=== PATIENT | male | born 1940 | race African-American/Black ===

== ENCOUNTER 2017-01-20 17:41 | Emergency (ER) | payer MEDICARE ==
[2017-01-20] MEDS ORDERED: MECLIZINE HCL 12.5 MG TABLET PO ONE ×2 (18:57→22:20)
--- NOTE | 2017-01-20 19:01 | ER Document Report ---
ED General - General Chief Complaint: Dizziness Stated Complaint: DIZZINESS Time seen by provider: 18:40 Mode of Arrival: Stretcher Information source: Patient TRAVEL OUTSIDE OF THE [place] IN LAST 30 DAYS: No - HPI Notes: Patient is a 76-year-old male presents [facility] with report of intermittent episodes of dizziness that he has had for several years, worse over the course of the past week with episode of near syncope today in which she felt diaphoretic and generally weak. Patient denies numbness, chest pain, palpitations, weight loss. He did not get overheated outside but didn't get diaphoretic. The patient reports no neck pain, back pain or headache. He denies any fever, cough, congestion or dysuria. No recent medication changes. Patient describes a sensation where he feels lightheaded with standing but also a sensation where the room seems to spin at times. - Related Data Allergies/Adverse Reactions: No Known Allergies Allergy (Verified 06/21/15 15:36) Past Medical History - Social History Smoking Status: Never Smoker Cigarette use (# per day): No Frequency of alcohol use: None Drug Abuse: None Lives with: Family Family History: Reviewed & Not Pertinent - Past Medical History Cardiac Medical History: Reports: Hx Hypercholesterolemia, Hx Hypertension - meds x 7 years Denies: Hx Atrial Fibrillation, Hx Congestive Heart Failure, Hx Coronary Artery Disease, Hx Heart Attack, Hx Peripheral Vascular Disease, Hx Pulmonary Embolism, Hx Heart Murmur Pulmonary Medical History: Reports: Hx Sleep Apnea Denies: Hx Asthma, Hx Bronchitis, Hx COPD, Hx Pneumonia, Hx Respiratory Failure, Hx Tuberculosis Neurological Medical History: Denies: Hx Cerebrovascular Accident, Hx Seizures Renal/ Medical History: Reports: Hx Benign Prostatic Hyperplasia - nocturia x 3-4/night. Denies: Hx End Stage Renal Disease, Hx Kidney Stones, Hx Peritoneal Dialysis Malignancy Medical History: Denies Hx Lung Cancer Musculoskeltal Medical History: Reports Hx Arthritis, Denies Hx Fibromyalgia, Denies Hx Muscular Dystrophy Psychiatric Medical History: Reports: Hx Anxiety Traumatic Medical History: Denies: Hx Fractures Past Surgical History: Reports: Hx Appendectomy, Hx Pacemaker, Hx Tonsillectomy - as child. Denies: Hx Bowel Surgery, Hx Cholecystectomy, Hx Coronary Artery Bypass Graft, Hx Gastric Bypass Surgery, Hx Herniorrhaphy - Immunizations Immunizations up to date: Yes Hx Diphtheria, Pertussis, Tetanus Vaccination: Yes Hx Pneumococcal Vaccination: 09/27/10 Review of Systems - Review of Systems Notes: REVIEW OF SYSTEMS: CONSTITUTIONAL : Denies fever, chills. Denies recent illness. EENT: Denies eye, ear, throat, or mouth pain or symptoms. Denies nasal or sinus congestion or discharge. Denies throat, tongue, or mouth swelling or difficulty swallowing. CARDIOVASCULAR: Denies chest pain. Denies palpitations or racing or irregular heart beat. Denies ankle edema. RESPIRATORY: Denies cough, cold, or chest congestion. Denies shortness of breath, difficulty breathing, or wheezing. GASTROINTESTINAL: Denies abdominal pain or distention. Denies nausea, vomiting , or diarrhea. Denies blood in vomitus, stools, or per rectum. Denies black, tarry stools. Denies constipation. GENITOURINARY: Denies difficulty urinating, painful urination, burning, frequency, blood in urine, or discharge. MUSCULOSKELETAL: Denies back or neck pain or stiffness. Denies joint pain or swelling. SKIN: Denies rash, lesions or sores. HEMATOLOGIC : Denies easy bruising or bleeding. LYMPHATIC: Denies swollen, enlarged glands. NEUROLOGICAL: Denies confusion. Denies passing out or loss of consciousness. Denies headache. Denies weakness or paralysis or loss of use of either side. Denies problems with gait or speech. Denies sensory loss, numbness, or tingling. Denies seizures. Patient does report a mild chronic tremor which is unchanged. PSYCHIATRIC: Denies anxiety or stress. Denies depression, suicidal ideation, or homicidal ideation. ALL OTHER SYSTEMS REVIEWED AND NEGATIVE. Dictation was performed using [employer] voice recognition software Physical Exam - Vital signs Vitals: Pulse Resp BP Pulse Ox 80 18 157/76 H 100 01/20/17 18:40 01/20/17 18:40 01/20/17 18:40 01/20/17 18:40 - Notes Notes: PHYSICAL EXAMINATION: GENERAL: Well-appearing, well-nourished and in no acute distress. HEAD: Atraumatic, normocephalic. EYES: Pupils equal round and reactive to light, extraocular movements intact, sclera anicteric, conjunctiva are normal. ENT: Nares patent, oropharynx clear without exudates. Moist mucous membranes. Tympanic membranes clear bilaterally. NECK: Normal range of motion, supple without lymphadenopathy. No carotid bruits. LUNGS: Breath sounds clear to auscultation bilaterally and equal. No wheezes rales or rhonchi. HEART: Regular rate and rhythm without murmurs. No gallop or rub. ABDOMEN: Soft, nontender, nondistended abdomen. No guarding, no rebound. No masses appreciated. Musculoskeletal: Normal range of motion. No cyanosis. 1+ bilateral lower extremity edema. Negative Homans. No palpable cord. Previous right knee replacement from 1 year ago in surgical sites appear appropriate. NEUROLOGICAL: Cranial nerves grossly intact. Normal speech. Normal sensory, motor exams. Patient does have a mild intention tremor which is equal bilaterally patient states is unchanged. PSYCH: Normal mood, normal affect. SKIN: Warm, Dry, normal turgor, no rashes or lesions noted. Course - Re-evaluation Re-evalutation: 01/20/17 22:20 Patient watched on caramel candy maker helper had no bradycardia or ectopy or other abnormality. Patient given meclizine with resolution of symptoms. Orthostatics were normal. Patient was ambulatory without complaint. No evidence for central vertigo, acute CVA, electrolyte imbalance, anemia, hypoglycemia, TIA, significant orthostasis, electrolyte imbalance. Findings fit more so other peripheral vertigo, and patient has history of the same. - Vital Signs Vital signs: Temp Pulse Resp BP Pulse Ox 80 15 136/75 H 99 01/20/17 18:40 01/20/17 22:00 01/20/17 22:00 01/20/17 22:00 - Laboratory Result Diagrams: 01/20/17 20:05 01/20/17 20:05 Laboratory results interpreted by me: 01/20/17 01/20/17 18:45 20:05 RDW 14.8 H Monocytes % 14.6 H Eosinophils % 6.1 H Urine Blood SMALL H - EKG Interpretation by Ri EKG shows normal: Sinus rhythm When compared to previous EKG there are: No significant change Additional EKG results interpreted by me: 01/20/17 19:05 EKG as interpreted by wa showed normal sinus rhythm at 66. There is no gross evidence for acute SD or ischemia noted. There is no change from previous EKG reviewed from 09/05/15. Discharge - Discharge Clinical Impression: Vertigo Condition: Stable Disposition: HOME, SELF-CARE Instructions: Meclizine ([facility]), Vertigo ([facility]) Additional Instructions: Stand up slowly. Use your cane to ambulate. Prescriptions: Meclizine HCl 25 mg PO Q8HP PRN #20 tablet PRN Reason: Referrals: FELICITY VALDOVINOS MD [Primary Care Provider] - Follow up as needed
[2017-01-20 19:30] LABS: APPEARANCE,URINE CLEAR; BILIRUBIN,URINE NEGATIVE (NEGATIVE); GLUCOSE, URINE NEGATIVE (NEGATIVE); KETONES,URINE NEGATIVE (NEGATIVE); LEUKOCYTE ESTERASE,URINE NEGATIVE (NEGATIVE); NITRITE,URINE NEGATIVE (NEGATIVE); PROTEIN,URINE NEGATIVE (NEGATIVE); URINE SPECIFIC GRAVITY 1.017; UROBILINOGEN,URINE NEGATIVE mg/dL (<2.0)
[2017-01-20 20:18] LABS: ABSOLUTE BASOPHILS # (AUTO) 0.1 10^3/uL (0.0-0.2); ABSOLUTE EOSINOPHILS # (AUTO) 0.5 10^3/uL (0.0-0.6); ABSOLUTE MONOCYTES (AUTO) 1.3 10^3/uL (0.1-1.4); ABSOLUTE NEUT (AUTO) 3.9 10^3/uL (1.7-8.2); BASOPHILS % (AUTO) 1.2 % (0-2); EOSINOPHILS % (AUTO) 6.1 % (0-6); HEMATOCRIT 42.3 % (37.9-51.0); HEMOGLOBIN 13.8 g/dL (13.5-17.0); HGB HCT DIFFERENCE -0.9; LYMPHOCYTES % (AUTO) 33.6 % (13-45); MEAN CORPUSCULAR HEMOGLOBIN 28.6 pg (27.0-33.4); MEAN CORPUSCULAR HGB CONC 32.8 g/dL (32.0-36.0); MEAN CORPUSCULAR VOLUME 87 fl (80-97); MONOCYTES % (AUTO) 14.6 % (3-13); RED BLOOD COUNT 4.85 10^6/uL (4.35-5.55); RED CELL DISTRIBUTION WIDTH 14.8 % (11.5-14.0); SEGMENTED NEUTROPHILS % (AUTO) 44.5 % (42-78); WHITE BLOOD COUNT 8.8 10^3/uL (4.0-10.5)
[2017-01-20 20:45] LABS: ALANINE AMINOTRANSFERASE 28 U/L (21-72); ALBUMIN 4.1 g/dL (3.5-5.0); ALKALINE PHOSPHATASE 105 U/L (38-126); ANION GAP 15 (5-19); ASPARTATE AMINO TRANSFERASE 22 U/L (17-59); BILIRUBIN,DIRECT 0.3 mg/dL (0.0-0.4); BILIRUBIN,TOTAL 0.5 mg/dL (0.2-1.3); BLOOD UREA NITROGEN 16 mg/dL (7-20); CALCIUM 9.6 mg/dL (8.4-10.2); CARBON DIOXIDE 26 mmol/L (22-30); CHLORIDE 103 mmol/L (98-107); CREATININE RESULT 1.06 mg/dL (0.52-1.25); GLUCOSE 97 mg/dL (75-110); POTASSIUM 4.2 mmol/L (3.6-5.0); SODIUM 143.6 mmol/L (137-145)
--- NOTE | 2017-01-20 21:17 | EKG REPORT ---
SEVERITY:- NORMAL ECG - SINUS RHYTHM : Confirmed by: Jw Katz 20-Jan-2017 21:16:53
[2017-01-20] MEDS ORDERED: MECLIZINE HCL 12.5 MG TABLET ONE (23:36)
[2017-01-21 00:01] VITALS: BP 134/82
== END 2017-01-20 23:45 | disposition home or self-care (01) ==
LOC: ER 17:41
DX: R42 Dizziness and giddiness (principal); E78.00 Pure hypercholesterolemia, unspecified; I10 Essential (primary) hypertension; Z95.0 Presence of cardiac pacemaker
CPT/HCPCS: 93005; 99285; 36415; 83735; 85025; 80053; 81001; 84484; 70450; 93010; A9270; J3490

== ENCOUNTER 2017-05-02 08:59 | Emergency (ER) | payer MEDICARE ==
--- NOTE | 2017-05-02 09:49 | ER Document Report ---
ED General - General Chief Complaint: Leg Swelling Stated Complaint: LEG PAIN Time Seen by Provider: 05/02/17 09:43 Mode of Arrival: Ambulatory Information source: Patient Notes: 76 yr old male hx of htn presents iwth complaints of right lower extremity swelling over the past week. Patient denies any previous similar episodes denies any fevers chills nausea vomiting or diarrhea. Patient denies any shortness breath chest pain. Patient denies a history of DVTs or PEs patient is only on aspirin TRAVEL OUTSIDE OF THE [place] IN LAST 30 DAYS: No - HPI Onset: Last week Onset/Duration: Persistent Quality of pain: Achy Severity: Mild Pain Level: 1 Associated symptoms: Leg swelling Exacerbated by: Movement, Walking Relieved by: Denies Similar symptoms previously: No Recently seen / treated by doctor: No - Related Data Allergies/Adverse Reactions: No Known Allergies Allergy (Verified 05/02/17 09:14) Past Medical History - Social History Smoking Status: Never Smoker Cigarette use (# per day): No Chew tobacco use (# tins/day): No Smoking Education Provided: No Family History: Reviewed & Not Pertinent Patient has suicidal ideation: No Patient has homicidal ideation: No - Past Medical History Cardiac Medical History: Reports: Hx Hypercholesterolemia, Hx Hypertension - meds x 7 years Denies: Hx Atrial Fibrillation, Hx Congestive Heart Failure, Hx Coronary Artery Disease, Hx Heart Attack, Hx Peripheral Vascular Disease, Hx Pulmonary Embolism, Hx Heart Murmur Pulmonary Medical History: Reports: Hx Sleep Apnea Denies: Hx Asthma, Hx Bronchitis, Hx COPD, Hx Pneumonia, Hx Respiratory Failure, Hx Tuberculosis Neurological Medical History: Denies: Hx Cerebrovascular Accident, Hx Seizures Renal/ Medical History: Reports: Hx Benign Prostatic Hyperplasia - nocturia x 3-4/night. Denies: Hx End Stage Renal Disease, Hx Kidney Stones, Hx Peritoneal Dialysis Malignancy Medical History: Denies Hx Lung Cancer Musculoskeltal Medical History: Reports Hx Arthritis, Denies Hx Fibromyalgia, Denies Hx Muscular Dystrophy Psychiatric Medical History: Reports: Hx Anxiety Traumatic Medical History: Denies: Hx Fractures Past Surgical History: Reports: Hx Appendectomy, Hx Orthopedic Surgery - R knee and hip replacements, Hx Pacemaker, Hx Tonsillectomy - as child. Denies: Hx Bowel Surgery, Hx Cholecystectomy, Hx Coronary Artery Bypass Graft, Hx Gastric Bypass Surgery, Hx Herniorrhaphy - Immunizations Immunizations up to date: Yes Hx Diphtheria, Pertussis, Tetanus Vaccination: Yes Hx Pneumococcal Vaccination: 09/27/10 Review of Systems - Review of Systems Notes: REVIEW OF SYSTEMS: CONSTITUTIONAL : Denies fever, chills, or sweats. Denies recent illness. EENT: Denies eye, ear, throat, or mouth pain or symptoms. Denies nasal or sinus congestion or discharge. Denies throat, tongue, or mouth swelling or difficulty swallowing. CARDIOVASCULAR: Denies chest pain. Denies palpitations or racing or irregular heart beat. Denies ankle edema. RESPIRATORY: Denies cough, cold, or chest congestion. Denies shortness of breath, difficulty breathing, or wheezing. GASTROINTESTINAL: Denies abdominal pain or distention. Denies nausea, vomiting , or diarrhea. Denies blood in vomitus, stools, or per rectum. Denies black, tarry stools. Denies constipation. GENITOURINARY: Denies difficulty urinating, painful urination, burning, frequency, blood in urine, or discharge. MUSCULOSKELETAL: Admits to right lower extremity swelling SKIN: Denies rash, lesions or sores. HEMATOLOGIC : Denies easy bruising or bleeding. LYMPHATIC: Denies swollen, enlarged glands. NEUROLOGICAL: Denies confusion or altered mental status. Denies passing out or loss of consciousness. Denies dizziness or lightheadedness. Denies headache. Denies weakness or paralysis or loss of use of either side. Denies problems with gait or speech. Denies sensory loss, numbness, or tingling. Denies seizures. PSYCHIATRIC: Denies anxiety or stress. Denies depression, suicidal ideation, or homicidal ideation. ALL OTHER SYSTEMS REVIEWED AND NEGATIVE. Dictation was performed using [employer] voice recognition software PHYSICAL EXAMINATION: GENERAL: Well-appearing, well-nourished and in no acute distress. HEAD: Atraumatic, normocephalic. EYES: Pupils equal round and reactive to light, extraocular movements intact, sclera anicteric, conjunctiva are normal. ENT: Nares patent, oropharynx clear without exudates. Moist mucous membranes. NECK: Normal range of motion, supple without lymphadenopathy LUNGS: Breath sounds clear to auscultation bilaterally and equal. No wheezes rales or rhonchi. HEART: Regular rate and rhythm without murmurs ABDOMEN: Soft, nontender, nondistended abdomen. No guarding, no rebound. No masses appreciated. Musculoskeletal: Left lower extremity normal right lower extremity edemetous +3 calf tenderness noted NEUROLOGICAL: Cranial nerves grossly intact. Normal speech, normal gait. Normal sensory, motor exams PSYCH: Normal mood, normal affect. SKIN: Warm, Dry, normal turgor, no rashes or lesions noted. Physical Exam - Vital signs Vitals: Temp Pulse Resp Pulse Ox 97.8 F 83 16 97 05/02/17 09:08 05/02/17 09:08 05/02/17 09:08 05/02/17 09:08 Course - Re-evaluation Re-evalutation: 05/02/17 09:57 Doppler has been ordered to rule out a blood clot, x-ray pending to rule out cardiomegaly and other life-threatening causes of edema 05/02/17 11:26 Icing And Glaze Maker notes negative Doppler last year, appears patient had similar swelling 05/02/17 12:24 I spoke with patient's primary care physician, he will reevaluate in 1-2 days. Very strict return precautions have been provided with multiple family members, patient is happy with this plan After performing a Medical Screening Examination, I estimate there is LOW risk for RUPTURED ESOPHAGUS, PNEUMOTHORAX, PULMONARY EMBOLISM, ACUTE CORONARY SYNDROME, OR THORACIC AORTIC DISSECTION, thus I consider the discharge disposition reasonable. I have reevaluated this patient multiple times and no significant life threatening changes are noted. The patient and I have discussed the diagnosis and risks, and we agree with discharging home with close follow-up. We also discussed returning to the Emergency Department immediately if new or worsening symptoms occur. We have discussed the symptoms which are most concerning (e.g., bloody sputum, worsening pain or shortness of breath) that necessitate immediate return. - Vital Signs Vital signs: Temp Pulse Resp BP Pulse Ox 97.8 F 83 16 97 05/02/17 09:08 05/02/17 09:08 05/02/17 09:08 05/02/17 09:08 - Laboratory Result Diagrams: 05/02/17 10:05 05/02/17 10:05 Laboratory results interpreted by me: 05/02/17 05/02/17 10:05 10:05 Hgb 13.3 L RDW 14.5 H Eosinophils % 6.5 H Glucose 132 H - Diagnostic Test Radiology reviewed: Image reviewed, Reports reviewed - no dvt Discharge - Discharge Clinical Impression: Peripheral edema, Pain of right lower extremity Condition: Stable Disposition: HOME, SELF-CARE Instructions: Edema, Peripheral ([facility]) Referrals: FELICITY VALDOVINOS MD [Primary Care Provider] - Follow up tomorrow
[2017-05-02 10:41] LABS: ABSOLUTE BASOPHILS # (AUTO) 0.1 10^3/uL (0.0-0.2); ABSOLUTE EOSINOPHILS # (AUTO) 0.4 10^3/uL (0.0-0.6); ABSOLUTE LYMPHOCYTES (AUTO) 1.9 10^3/uL (0.5-4.7); ABSOLUTE MONOCYTES (AUTO) 0.7 10^3/uL (0.1-1.4); ABSOLUTE NEUT (AUTO) 3.3 10^3/uL (1.7-8.2); BASOPHILS % (AUTO) 1.2 % (0-2); EOSINOPHILS % (AUTO) 6.5 % (0-6); HEMATOCRIT 40.3 % (37.9-51.0); HEMOGLOBIN 13.3 g/dL (13.5-17.0); HGB HCT DIFFERENCE -0.4; MEAN CORPUSCULAR HEMOGLOBIN 29.4 pg (27.0-33.4); MEAN CORPUSCULAR VOLUME 89 fl (80-97); MONOCYTES % (AUTO) 10.9 % (3-13); RED BLOOD COUNT 4.52 10^6/uL (4.35-5.55); RED CELL DISTRIBUTION WIDTH 14.5 % (11.5-14.0); SEGMENTED NEUTROPHILS % (AUTO) 51.4 % (42-78); WHITE BLOOD COUNT 6.3 10^3/uL (4.0-10.5)
[2017-05-02 10:50] LABS: ALANINE AMINOTRANSFERASE 26 U/L (21-72); ALBUMIN 3.9 g/dL (3.5-5.0); ALKALINE PHOSPHATASE 98 U/L (38-126); ANION GAP 10 (5-19); BILIRUBIN,DIRECT 0.3 mg/dL (0.0-0.4); BILIRUBIN,TOTAL 0.3 mg/dL (0.2-1.3); BLOOD UREA NITROGEN 10 mg/dL (7-20); CALCIUM 9.1 mg/dL (8.4-10.2); CARBON DIOXIDE 27 mmol/L (22-30); CHLORIDE 105 mmol/L (98-107); GLUCOSE 132 mg/dL (75-110); POTASSIUM 4.3 mmol/L (3.6-5.0); SODIUM 141.6 mmol/L (137-145); TOTAL PROTEIN 7.6 g/dL (6.3-8.2)
[2017-05-02 10:51] LABS: ASPARTATE AMINO TRANSFERASE 21 U/L (17-59)
--- NOTE | 2017-05-02 11:09 | RADIOLOGY REPORT (SQ) ---
EXAM DESCRIPTION: CHEST PA/LAT COMPLETED DATE/TIME: 05/02/2017 10:58 am REASON FOR STUDY: RLE edema COMPARISON: 01/21/2016. EXAM PARAMETERS: NUMBER OF VIEWS: two views TECHNIQUE: Digital Frontal and Lateral radiographic views of the chest acquired. RADIATION DOSE: NA LIMITATIONS: none FINDINGS: LUNGS AND PLEURA: No opacities, masses or pneumothorax. No pleural effusion. MEDIASTINUM AND HILAR STRUCTURES: No masses or contour abnormalities. HEART AND VASCULAR STRUCTURES: Heart normal size. No evidence for failure. BONES: No acute findings. Degenerative changes in the spine. HARDWARE: None in the chest. OTHER: No other significant finding. IMPRESSION: NO ACUTE RADIOGRAPHIC FINDING IN THE CHEST. TECHNICAL DOCUMENTATION: JOB ID: [id number] [employer]- All Rights Reserved
--- NOTE | 2017-05-02 12:21 | RADIOLOGY REPORT (SQ) ---
EXAM DESCRIPTION: VENOUS UNILATERAL LOWER COMPLETED DATE/TIME: 05/02/2017 12:09 pm REASON FOR STUDY: RLE edema COMPARISON: None. TECHNIQUE: Dynamic and static benson scale and color images acquired of the right leg venous system. S elected spectral images acquired with additional compression and augmentation maneuvers. The contrala teral common femoral vein and saphenofemoral junction were also imaged. Images stored on PACS. LIMITATIONS: None. FINDINGS: COMMON FEMORAL: Normal phasicity, compression and augmentation. No visualized echogenic ma terial on benson scale. No defects on color images. FEMORAL: Normal compression and augmentation. No visualized echogenic material on benson scale. No defe cts on color images. POPLITEAL: Normal compression, augmentation. No visualized echogenic material on benson scale. No defec ts on color images. CALF VESSELS: Normal compression, augmentation. No visualized echogenic material on benson scale. No de fects on color images. GSV and SSV: Normal compression, augmentation. No visualized echogenic material on benson scale. No def ects on color images. ANY DEEP VENOUS INSUFFICIENCY: Reflux in the distal greater saphenous vein. ANY EVIDENCE OF POPLITEAL CYST: No. OTHER: No other significant finding. CONTRALATERAL COMMON FEMORAL VEIN AND SAPHENOFEMORAL JUNCTION: Normal phasicity, compression and augmentation. No visualized echogenic material on benson scale. No de fects on color images. IMPRESSION: NO EVIDENCE DVT OR SVT IN THE RIGHT LEG. COMMENT: Preliminary report was called by the technologist to the referring clinician's office at th e time of patient visit. TECHNICAL DOCUMENTATION: JOB ID: [id number] [employer]- All Rights Reserved
[2017-05-02 12:30] VITALS: BP 124/70
== END 2017-05-02 12:30 | disposition home or self-care (01) ==
LOC: ER 08:59
DX: R60.0 Localized edema (principal); M79.604 Pain in right leg; I10 Essential (primary) hypertension; Z79.82 Long term (current) use of aspirin
CPT/HCPCS: 36415; 71020; 80053; 83880; 85025; 93971; 99284

== ENCOUNTER → 2017-05-03 | Outpatient (CLI) | payer MEDICARE ==
--- NOTE | 2017-05-03 13:45 | RADIOLOGY REPORT (SQ) ---
EXAM DESCRIPTION: CT ABD/PELVIS WITH IV ORAL COMPLETED DATE/TIME: 05/03/2017 1:29 pm REASON FOR STUDY: RIGHT LOWER QUADRANT ABD SWELLING, MASS AND LUMP (R19.03) R19.03 RIGHT LOWER QUAD RANT ABDOMINAL SWELLING, MASS AND LUM COMPARISON: 05/04/2016. TECHNIQUE: CT scan of the abdomen and pelvis performed using helical scanning technique with dynamic intravenous contrast injection. No oral contrast. Images reviewed with lung, soft tissue, and bone windows. Reconstructed coronal and sagittal MPR images reviewed. Delayed images for evaluation of the urinary system also acquired. All images stored on PACS. All CT scanners at this facility use dose modulation, iterative reconstruction, and/or weight based d osing when appropriate to reduce radiation dose to as low as reasonably achievable (ALARA). [facility]: Dose Right [facility]: CareDose [facility]: Dose Right [facility]: Teradose 4D [facility]: [employer] CONTRAST TYPE AND DOSE: contrast/concentration: Isovue 370.00 mg/ml; Total Contrast Delivered: 100.0 ml; Total Saline Delivered: 72.0 ml RENAL FUNCTION: BUN 10 creatinine 1.0. RADIATION DOSE: Up-to-date CT equipment and radiation dose reduction techniques were employed. CTDIv ol: 11.1 - 13.2 mGy. DLP: 1151 mGy-cm.. LIMITATIONS: None. FINDINGS: LOWER CHEST: No significant findings. No nodules or infiltrates. LIVER: Normal size. Diffuse fatty infiltration. No masses. No dilated ducts. SPLEEN: Normal size. No focal lesions. PANCREAS: No masses. No significant calcifications. No adjacent inflammation or peripancreatic fluid collections. Pancreatic duct not dilated. GALLBLADDER: No identified stones by CT criteria. No inflammatory changes to suggest cholecystitis. ADRENAL GLANDS: No significant masses or asymmetry. RIGHT KIDNEY AND URETER: Stable cortical cysts, the largest measuring 1.8 cm. No solid masses. No significant calcifications. No hydronephrosis or hydroureter. LEFT KIDNEY AND URETER: Stable cortical cysts, the largest measuring 5.0 cm and 8.0 cm. No solid mas ses. No significant calcifications. No hydronephrosis or hydroureter. AORTA AND VESSELS: No aneurysm. No dissection. Renal arteries, SMA, celiac without stenosis. RETROPERITONEUM: No retroperitoneal adenopathy, hemorrhage or masses. BOWEL AND PERITONEAL CAVITY: No masses or inflammatory changes. No free fluid or peritoneal masses. APPENDIX: Normal. PELVIS: No mass. No free fluid. Normal bladder. ABDOMINAL WALL: No masses. No hernias. BONES: No significant or acute findings. Right hip prosthesis. OTHER: No other significant finding. IMPRESSION: 1. 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 2. FATTY INFILTRATION OF THE LIVER. 3. NO OTHER SIGNIFICANT OR ACUTE FINDING IN THE ABDOMEN OR PELVIS ON CT SCAN WITH IV CONTRAST. TECHNICAL DOCUMENTATION: JOB ID: [id number] Quality ID # [id number]: Final reports with documentation of one or more dose reduction techniques (e.g., Au tomated exposure control, adjustment of the mA and/or kV according to patient size, use of iterative reconstruction technique) 2010 [employer]- All Rights Reserved
== END ==
LOC: RAD 10:13
PROVIDERS: ATTEND Internal Medicine
DX: R19.03 Right lower quadrant abdominal swelling, mass and lump (principal)
CPT/HCPCS: 74177

== ENCOUNTER → 2017-05-28 | Outpatient (CLI) | payer MEDICAID, MEDICARE ==
--- NOTE | 2017-05-28 16:34 | RADIOLOGY REPORT (SQ) ---
EXAM DESCRIPTION: CT ABD/PELVIS NO ORAL OR IV COMPLETED DATE/TIME: 05/28/2017 4:05 pm REASON FOR STUDY: CALCULUS OF KIDNEY N23 UNSPECIFIED RENAL COLIC N20.0 CALCULUS OF KIDNEY COMPARISON: 05/03/2017 TECHNIQUE: CT scan of the abdomen and pelvis performed without intravenous or oral contrast. Images reviewed with lung, soft tissue, and bone windows. Reconstructed coronal and sagittal MPR images revi ewed. All images stored on PACS. All CT scanners at this facility use dose modulation, iterative reconstruction, and/or weight based d osing when appropriate to reduce radiation dose to as low as reasonably achievable (ALARA). [facility]: Dose Right [facility]: CareDose [facility]: Dose Right [facility]: Teradose 4D [facility]: Smart QuicklyChat RADIATION DOSE: Up-to-date CT equipment and radiation dose reduction techniques were employed. CTDIv ol: 15.4 mGy. DLP: 725 mGy-cm.mGy. LIMITATIONS: None. FINDINGS: LOWER CHEST: No significant findings. No nodules or infiltrates. NON-CONTRASTED LIVER, SPLEEN, ADRENALS: Evaluation limited by lack of IV contrast. No identified sign ificant masses. PANCREAS: No masses. No peripancreatic inflammatory changes. GALLBLADDER: Contracted. No stones. No ductal dilatation. RIGHT KIDNEY AND URETER: No suspicious masses. A couple small stable cysts are present. No signifi cant calcifications. No hydronephrosis or hydroureter. LEFT KIDNEY AND URETER: No suspicious solid masses. There are for stable cortical cysts. The larges t measures 9 cm. No significant calcifications. No hydronephrosis or hydroureter. AORTA AND RETROPERITONEUM: No aneurysm. No retroperitoneal masses or adenopathy. BOWEL AND PERITONEAL CAVITY: No obvious masses or inflammatory changes. No free fluid. APPENDIX: Not identified. PELVIS, BLADDER, AND ABDOMINAL WALL:No abnormal masses. No free fluid. Bladder normal. BONES: There is a right hip arthroplasty in good position. OTHER: No other significant finding. IMPRESSION: There are stable renal cortical cysts. There is no ureteral stone or obstruction. COMMENT: Findings discussed with the ordering physician at 1628 hours on this date. Quality ID # [id number]: Final reports with documentation of one or more dose reduction techniques (e.g., Au tomated exposure control, adjustment of the mA and/or kV according to patient size, use of iterative reconstruction technique) TECHNICAL DOCUMENTATION: JOB ID: [id number] [employer]- All Rights Reserved
== END ==
LOC: RAD 15:49
PROVIDERS: ATTEND Internal Medicine
DX: N20.0 Calculus of kidney (principal); N23 Unspecified renal colic
CPT/HCPCS: 74176

== ENCOUNTER 2018-02-08 17:51 | Emergency (ER) | payer MEDICARE ==
--- NOTE | 2018-02-08 19:07 | ER Document Report ---
ED Medical Screen (RME) - General Chief Complaint: Abdominal Pain Stated Complaint: ABDOMINAL PAIN Time Seen by Provider: 02/08/18 19:02 Notes: RAPID MEDICAL EVALUATION DISCLOSURE I have seen this patient as part of a Rapid Medical Evaluation and, if applicable, placed any initially appropriate orders. The patient will be seen and fully evaluated, including a full history and physical exam, by a provider ( in Main ED or Fast Track) when a room becomes available. 77-year-old male here with complaints of left flank pain radiating into the lower abdomen that started 1 week ago, constant, not worse with anything in particular. He denies any nausea vomiting diarrhea hematuria dysuria frequency hesitancy. Of note, he has had numerous CTs of his abdomen/pelvis. The last 3 have not shown any nephrolithiasis or ureterolithiasis. EXAM No abdominal TTP Mild left flank TTP TRAVEL OUTSIDE OF THE [place] IN LAST 30 DAYS: No - Related Data Allergies/Adverse Reactions: No Known Allergies Allergy (Verified 05/02/17 09:14) Past Medical History - Social History Frequency of alcohol use: None Drug Abuse: None - Past Medical History Cardiac Medical History: Reports: Hx Hypercholesterolemia, Hx Hypertension - meds x 7 years Denies: Hx Atrial Fibrillation, Hx Congestive Heart Failure, Hx Coronary Artery Disease, Hx Heart Attack, Hx Peripheral Vascular Disease, Hx Pulmonary Embolism, Hx Heart Murmur Pulmonary Medical History: Reports: Hx Sleep Apnea Denies: Hx Asthma, Hx Bronchitis, Hx COPD, Hx Pneumonia, Hx Respiratory Failure, Hx Tuberculosis Neurological Medical History: Denies: Hx Cerebrovascular Accident, Hx Seizures Renal/ Medical History: Reports: Hx Benign Prostatic Hyperplasia - nocturia x 3-4/night. Denies: Hx End Stage Renal Disease, Hx Kidney Stones, Hx Peritoneal Dialysis Malignancy Medical History: Denies Hx Lung Cancer GI Medical History: Denies: Hx Pancreatitis Musculoskeltal Medical History: Reports Hx Arthritis, Denies Hx Fibromyalgia, Denies Hx Muscular Dystrophy Psychiatric Medical History: Reports: Hx Anxiety Traumatic Medical History: Denies: Hx Fractures Past Surgical History: Reports: Hx Appendectomy, Hx Orthopedic Surgery - R knee and hip replacements, Hx Pacemaker, Hx Tonsillectomy - as child. Denies: Hx Bowel Surgery, Hx Cholecystectomy, Hx Coronary Artery Bypass Graft, Hx Gastric Bypass Surgery, Hx Herniorrhaphy - Immunizations Immunizations up to date: Yes Hx Diphtheria, Pertussis, Tetanus Vaccination: Yes Physical Exam - Vital signs Vitals: Temp Pulse Resp BP Pulse Ox 99.1 F 72 18 145/71 H 95 02/08/18 18:01 02/08/18 18:01 02/08/18 18:01 02/08/18 18:01 02/08/18 18:01 Course - Vital Signs Vital signs: Temp Pulse Resp BP Pulse Ox 99.1 F 72 18 145/71 H 95 02/08/18 18:01 02/08/18 18:01 02/08/18 18:01 02/08/18 18:01 02/08/18 18:01
--- NOTE | 2018-02-08 20:18 | ER Document Report ---
ED General - General Chief Complaint: Abdominal Pain Stated Complaint: ABDOMINAL PAIN Time Seen by Provider: 02/08/18 19:02 Mode of Arrival: Ambulatory Information source: Patient Notes: This is a 77-year-old man with a history of hypertension, AAA repair ([place] ), arthritis who presents to the emergency room with a 1 day history of left flank pain moving down to the right lower quadrant. Patient states that the pain started 3 days ago and seems to have gotten worse. He denies nausea or vomiting. He denies blood in the urine or the stool. He denies a history of kidney stones. TRAVEL OUTSIDE OF THE [place] IN LAST 30 DAYS: No - HPI Onset: Last week Onset/Duration: Gradual Quality of pain: Dull Severity: Mild Pain Level: 1 Associated symptoms: denies: Fever, Nausea, Vomiting Exacerbated by: Denies Relieved by: Denies Similar symptoms previously: No Recently seen / treated by doctor: No - Related Data Allergies/Adverse Reactions: No Known Allergies Allergy (Verified 05/02/17 09:14) Past Medical History - General Information source: Patient - Social History Smoking Status: Never Smoker Cigarette use (# per day): No Chew tobacco use (# tins/day): No Frequency of alcohol use: None Drug Abuse: None Lives with: Family Family History: Reviewed & Not Pertinent Patient has suicidal ideation: No Patient has homicidal ideation: No - Past Medical History Cardiac Medical History: Reports: Hx Hypercholesterolemia, Hx Hypertension - meds x 7 years Denies: Hx Atrial Fibrillation, Hx Congestive Heart Failure, Hx Coronary Artery Disease, Hx Heart Attack, Hx Peripheral Vascular Disease, Hx Pulmonary Embolism, Hx Heart Murmur Pulmonary Medical History: Reports: Hx Sleep Apnea Denies: Hx Asthma, Hx Bronchitis, Hx COPD, Hx Pneumonia, Hx Respiratory Failure, Hx Tuberculosis Neurological Medical History: Denies: Hx Cerebrovascular Accident, Hx Seizures Renal/ Medical History: Reports: Hx Benign Prostatic Hyperplasia - nocturia x 3-4/night. Denies: Hx End Stage Renal Disease, Hx Kidney Stones, Hx Peritoneal Dialysis Malignancy Medical History: Denies Hx Lung Cancer GI Medical History: Denies: Hx Pancreatitis Musculoskeltal Medical History: Reports Hx Arthritis, Denies Hx Fibromyalgia, Denies Hx Muscular Dystrophy Psychiatric Medical History: Reports: Hx Anxiety Traumatic Medical History: Denies: Hx Fractures Past Surgical History: Reports: Hx Appendectomy, Hx Orthopedic Surgery - R knee and hip replacements, Hx Pacemaker, Hx Tonsillectomy - as child. Denies: Hx Bowel Surgery, Hx Cholecystectomy, Hx Coronary Artery Bypass Graft, Hx Gastric Bypass Surgery, Hx Herniorrhaphy - Immunizations Immunizations up to date: Yes Hx Diphtheria, Pertussis, Tetanus Vaccination: Yes Hx Pneumococcal Vaccination: 09/27/10 Review of Systems - Review of Systems Constitutional: denies: Chills, Fever EENT: No symptoms reported Cardiovascular: No symptoms reported Respiratory: No symptoms reported Gastrointestinal: See HPI Genitourinary: No symptoms reported Male Genitourinary: No symptoms reported Musculoskeletal: No symptoms reported Skin: No symptoms reported Hematologic/Lymphatic: No symptoms reported Neurological/Psychological: No symptoms reported Physical Exam - Vital signs Vitals: Temp Pulse Resp BP Pulse Ox 99.1 F 72 18 145/71 H 95 02/08/18 18:01 02/08/18 18:01 02/08/18 18:01 02/08/18 18:01 02/08/18 18:01 Notes: Physical exam: GENERAL: 37-year-old man, alert and oriented 3, no acute distress HEAD: Atraumatic, normocephalic. EYES: Pupils equal round and reactive to light, extraocular movements intact, sclera anicteric, conjunctiva are normal. ENT: TMs normal, nares patent, oropharynx clear without exudates. Moist mucous membranes. NECK: Normal range of motion, supple without obvious mass or JVD. LUNGS: Breath sounds clear to auscultation bilaterally and equal. No wheezes rales or rhonchi. HEART: Regular rate and rhythm without murmurs, rubs or gallops. ABDOMEN: Soft, normoactive bowel sounds. No tenderness to palpation. No guarding, no rebound. No masses appreciated. EXTREMITIES: Normal range of motion, no pitting or edema. No clubbing or cyanosis. NEUROLOGICAL: Cranial nerves II through XII grossly intact. Normal speech, moving all extremities. PSYCH: Normal mood, normal affect. SKIN: Warm, Dry, normal turgor, no rashes or lesions noted. Course - Vital Signs Vital signs: Temp Pulse Resp BP Pulse Ox 97.4 F 67 14 162/83 H 94 02/09/18 01:27 02/09/18 01:27 02/09/18 01:27 02/09/18 01:27 02/09/18 01:27 - Laboratory Result Diagrams: 02/08/18 20:10 02/08/18 20:10 Laboratory results interpreted by me: 02/08/18 02/08/18 02/08/18 20:10 20:10 20:35 RBC 5.58 H RDW 14.2 H Eosinophils % 6.9 H Sodium 146.1 H ALT 17 L Total Protein 8.5 H Urine Blood MODERATE H - Diagnostic Test Radiology reviewed: Image reviewed, Reports reviewed - CT of the abdomen with and without contrast show septated renal cyst on the left which is unchanged from previous. No evidence of leaking AAA. - EKG Interpretation by Me Rate: Normal Rhythm: NSR - EKG shows normal sinus rhythm with regular rate of 62, no acute ST -T wave changes Discharge - Discharge Clinical Impression: Flank pain Condition: Stable Disposition: HOME, SELF-CARE Additional Instructions: As we discussed, the CT of the abdomen with and without contrast shows no change in the cyst around the kidney on the left side. The CAT scan otherwise look good. Take the medicine as prescribed. Follow-up with Dr. Valdovinos this week. He will be able to see all the labs and CT scan done. Return to the emergency room for worsening pain, nausea, vomiting, not tolerating fluids. Prescriptions: Gabapentin 100 mg PO BID #20 capsule Referrals: FELICITY VALDOVINOS MD [Primary Care Provider] - 02/11/18
[2018-02-08 20:22] LABS: ABSOLUTE BASOPHILS # (AUTO) 0.1 10^3/uL (0.0-0.2); ABSOLUTE EOSINOPHILS # (AUTO) 0.5 10^3/uL (0.0-0.6); ABSOLUTE LYMPHOCYTES (AUTO) 2.7 10^3/uL (0.5-4.7); ABSOLUTE MONOCYTES (AUTO) 0.8 10^3/uL (0.1-1.4); ABSOLUTE NEUT (AUTO) 3.3 10^3/uL (1.7-8.2); BASOPHILS % (AUTO) 1.2 % (0-2); EOSINOPHILS % (AUTO) 6.9 % (0-6); HEMOGLOBIN 16.4 g/dL (13.5-17.0); MEAN CORPUSCULAR HEMOGLOBIN 29.3 pg (27.0-33.4); MEAN CORPUSCULAR HGB CONC 32.7 g/dL (32.0-36.0); MEAN CORPUSCULAR VOLUME 90 fl (80-97); MONOCYTES % (AUTO) 10.9 % (3-13); PLATELET COUNT 253 10^3/uL (150-450); RED BLOOD COUNT 5.58 10^6/uL (4.35-5.55); RED CELL DISTRIBUTION WIDTH 14.2 % (11.5-14.0); TOTAL CELLS COUNTED % (AUTO) 100 %; WHITE BLOOD COUNT 7.4 10^3/uL (4.0-10.5)
[2018-02-08 20:55] LABS: ALANINE AMINOTRANSFERASE 17 U/L (21-72); ALBUMIN 4.4 g/dL (3.5-5.0); ALKALINE PHOSPHATASE 117 U/L (38-126); ANION GAP 16 (5-19); ASPARTATE AMINO TRANSFERASE 29 U/L (17-59); BILIRUBIN,DIRECT 0.4 mg/dL (0.0-0.4); BILIRUBIN,TOTAL 0.4 mg/dL (0.2-1.3); BLOOD UREA NITROGEN 14 mg/dL (7-20); CARBON DIOXIDE 30 mmol/L (22-30); CHLORIDE 100 mmol/L (98-107); GLUCOSE 99 mg/dL (75-110); LIPASE 39.3 U/L (23-300); POTASSIUM 4.4 mmol/L (3.6-5.0); SODIUM 146.1 mmol/L (137-145); TOTAL PROTEIN 8.5 g/dL (6.3-8.2)
[2018-02-08 21:05] LABS: APPEARANCE,URINE SLIGHTLY-CLOUDY; BILIRUBIN,URINE NEGATIVE (NEGATIVE); COLOR,URINE YELLOW; GLUCOSE, URINE NEGATIVE (NEGATIVE); KETONES,URINE NEGATIVE (NEGATIVE); LEUKOCYTE ESTERASE,URINE NEGATIVE (NEGATIVE); NITRITE,URINE NEGATIVE (NEGATIVE); PROTEIN,URINE NEGATIVE (NEGATIVE); URINE SPECIFIC GRAVITY 1.026; UROBILINOGEN,URINE NEGATIVE mg/dL (<2.0)
--- NOTE | 2018-02-08 23:35 | RADIOLOGY REPORT (SQ) ---
EXAM DESCRIPTION: CT LTD RENAL STONE PROTOCOL ON; CT ABD/PELVIS WITH IV ONLY COMPLETED DATE/TIME: 02/08/2018 11:07 pm REASON FOR STUDY: left flank pain radiating to rlq; h/o aaa, left flank pain radiating to rlq COMPARISON: 05/28/2017 TECHNIQUE: CT scan of the abdomen and pelvis performed with and without intravenous contrast, and wi thout oral contrast. Contrasted imaging performed helical scanning technique and dynamic intravenous contrast injection. Images reviewed with lung, soft tissue, and bone windows. Reconstructed coronal a nd sagittal MPR images reviewed. Delayed images for evaluation of the urinary system also acquired. A ll images stored on PACS. All CT scanners at this facility use dose modulation, iterative reconstruction, and/or weight based d osing when appropriate to reduce radiation dose to as low as reasonably achievable (ALARA). [facility]: Dose Right [facility]: CareDose [facility]: Dose Right [facility]: Teradose 4D [facility]: [employer] RENAL FUNCTION: GFR > 60. RADIATION DOSE: . LIMITATIONS: None. FINDINGS: NON-CONTRASTED IMAGING: No significant renal or bladder calcifications. No other significa nt organ calcifications. POST-CONTRASTED IMAGING: LOWER CHEST: No significant findings. No nodules or infiltrates. LIVER: Normal size. No masses. No dilated ducts. SPLEEN: Normal size. No focal lesions. PANCREAS: No masses. No significant calcifications. No adjacent inflammation or peripancreatic fluid collections. Pancreatic duct not dilated. GALLBLADDER: No identified stones by CT criteria. No inflammatory changes to suggest cholecystitis. ADRENAL GLANDS: No significant masses or asymmetry. RIGHT KIDNEY AND URETER: No solid masses. Similar small cysts. No significant calcification. No hyd ronephrosis or hydroureter. LEFT KIDNEY AND URETER: No solid masses. Similar 10 cm septated dominant cyst. No significant calci fication. No hydronephrosis or hydroureter. AORTA AND VESSELS: No aneurysm. No dissection. Renal arteries, SMA, celiac without high-grade stenosi s. Right femoral artery stent. RETROPERITONEUM: No retroperitoneal adenopathy, hemorrhage or masses. BOWEL AND PERITONEAL CAVITY: No masses or inflammatory changes. No free fluid or peritoneal masses. APPENDIX: Normal. PELVIS: No mass. No free fluid. Normal bladder. ABDOMINAL WALL: No masses. No hernias. BONES: No acute findings. OTHER: No other significant finding. IMPRESSION: NO ACUTE ABNORMALITY IN THE ABDOMEN OR PELVIS. TECHNICAL DOCUMENTATION: JOB ID: [id number] Quality ID # [id number]: Final reports with documentation of one or more dose reduction techniques (e.g., Au tomated exposure control, adjustment of the mA and/or kV according to patient size, use of iterative reconstruction technique) 2010 [employer]- All Rights Reserved Reading location - IP/workstation name: [email or web address]
[2018-02-09] MEDS ORDERED: GABAPENTIN 100 MG CAPSULE PO ONE (01:20)
[2018-02-09 01:40] VITALS: BP 162/83
--- NOTE | 2018-02-09 22:55 | EKG REPORT ---
SEVERITY:- NORMAL ECG - SINUS RHYTHM : Confirmed by: Jw Katz 09-Feb-2018 19:54:58
== END 2018-02-09 01:40 | disposition home or self-care (01) ==
LOC: ER 17:51
DX: R10.9 Unspecified abdominal pain (principal); E78.00 Pure hypercholesterolemia, unspecified; I10 Essential (primary) hypertension; Z96.651 Presence of right artificial knee joint; Z96.641 Presence of right artificial hip joint; Z95.0 Presence of cardiac pacemaker
CPT/HCPCS: 93005; 99284; 36415; 83690; 85025; 80053; 81001; 76380; 74177; 93010; A9270

== ENCOUNTER → 2018-02-28 | Outpatient (CLI) | payer MEDICAID, MEDICARE ==
--- NOTE | 2018-02-28 15:27 | RADIOLOGY REPORT (SQ) ---
EXAM DESCRIPTION: CT ABD/PELVIS WITH IV ORAL COMPLETED DATE/TIME: 02/28/2018 2:47 pm REASON FOR STUDY: LOWER ABDOMINAL PAIN, UNSPECIFIED R10.30 LOWER ABDOMINAL PAIN, UNSPECIFIED COMPARISON: 05/28/2017. TECHNIQUE: CT scan of the abdomen and pelvis performed using helical scanning technique with dynamic intravenous contrast injection. No oral contrast. Images reviewed with lung, soft tissue, and bone windows. Reconstructed coronal and sagittal MPR images reviewed. Delayed images for evaluation of the urinary system also acquired. All images stored on PACS. All CT scanners at this facility use dose modulation, iterative reconstruction, and/or weight based d osing when appropriate to reduce radiation dose to as low as reasonably achievable (ALARA). [facility]: Dose Right [facility]: CareDose [facility]: Dose Right [facility]: Teradose 4D [facility]: [employer] CONTRAST TYPE AND DOSE: contrast/concentration: Isovue 370.00 mg/ml; Total Contrast Delivered: 98.0 ml; Total Saline Delivered: 72.0 ml RENAL FUNCTION: BUN 14 creatinine 0.96. RADIATION DOSE: CT Rad equipment meets quality standard of care and radiation dose reduction techniq ues were employed. CTDIvol: 9.2 - 10.7 mGy. DLP: 945 mGy-cm.. LIMITATIONS: None. FINDINGS: LOWER CHEST: No significant findings. No nodules or infiltrates. LIVER: Normal size. Diffuse fatty infiltration. No masses. No dilated ducts. SPLEEN: Normal size. No focal lesions. PANCREAS: No masses. No significant calcifications. No adjacent inflammation or peripancreatic fluid collections. Pancreatic duct not dilated. GALLBLADDER: Surgically absent. ADRENAL GLANDS: No significant masses or asymmetry. RIGHT KIDNEY AND URETER: Stable cortical cysts. No solid masses. No significant calcifications. No hydronephrosis or hydroureter. LEFT KIDNEY AND URETER: Stable cortical cysts. No solid masses. No significant calcifications. N o hydronephrosis or hydroureter. AORTA AND VESSELS: No aneurysm. No dissection. Renal arteries, SMA, celiac without stenosis. RETROPERITONEUM: No retroperitoneal adenopathy, hemorrhage or masses. BOWEL AND PERITONEAL CAVITY: No masses or inflammatory changes. No free fluid or peritoneal masses. APPENDIX: Surgically absent. PELVIS: No mass. No free fluid. Normal bladder. ABDOMINAL WALL: No masses. No hernias. BONES: No significant or acute findings. Right hip prosthesis. Chronic changes in the left hip and pelvis. OTHER: No other significant finding. IMPRESSION: STABLE RENAL CORTICAL CYSTS AND OTHER CHRONIC FINDINGS ABOVE. OTHERWISE NO SIGNIFICA NT OR ACUTE FINDING IN THE ABDOMEN OR PELVIS ON CT SCAN WITH IV CONTRAST. TECHNICAL DOCUMENTATION: JOB ID: [id number] Quality ID # 436: Final reports with documentation of one or more dose reduction techniques (e.g., Au tomated exposure control, adjustment of the mA and/or kV according to patient size, use of iterative reconstruction technique) 2010 [employer]- All Rights Reserved Reading location - IP/workstation name: [email or web address]
== END ==
LOC: RAD 11:28
PROVIDERS: ATTEND Internal Medicine
DX: R10.30 Lower abdominal pain, unspecified (principal); N28.1 Cyst of kidney, acquired
CPT/HCPCS: 74177

== ENCOUNTER 2018-07-14 10:23 | Observation (INO) | payer MEDICARE ==
[2018-07-14] MEDS ORDERED: NORMAL SALINE 250 ML with FUROSEMIDE 250 MG IV PRN ×2 (11:22)
--- NOTE | 2018-07-14 11:36 | RADIOLOGY REPORT (SQ) ---
EXAM DESCRIPTION: CHEST 2 VIEWS COMPLETED DATE/TIME: 07/14/2018 11:26 am REASON FOR STUDY: CHF I50.20 UNSPECIFIED SYSTOLIC (CONGESTIVE) HEART FAILURE COMPARISON: 05/02/2017 NUMBER OF VIEWS: Two views. TECHNIQUE: Frontal and lateral radiographic views of the chest acquired. LIMITATIONS: None. FINDINGS: LUNGS AND PLEURA: Chronic interstitial changes. No effusions. MEDIASTINUM AND HILAR STRUCTURES: No masses or contour abnormality. HEART AND VASCULAR STRUCTURES: Cardiac enlargement. Vascular congestion. BONES: No acute findings. HARDWARE: None in the chest. OTHER: No other significant finding. IMPRESSION: CARDIAC ENLARGEMENT. VASCULAR CONGESTION. TECHNICAL DOCUMENTATION: JOB ID: [id number] [employer]- All Rights Reserved Reading location - IP/workstation name: [email or web address]-[email or web address]
[2018-07-14 12:19] VITALS: BP 166/79
[2018-07-14 12:50] LABS: HEMATOCRIT 43.1 % (37.9-51.0); HEMOGLOBIN 14.5 g/dL (13.5-17.0); MEAN CORPUSCULAR HEMOGLOBIN 29.6 pg (27.0-33.4); MEAN CORPUSCULAR HGB CONC 33.7 g/dL (32.0-36.0); MEAN CORPUSCULAR VOLUME 88 fl (80-97); PLATELET COUNT 231 10^3/uL (150-450); RED CELL DISTRIBUTION WIDTH 14.9 % (11.5-14.0); WHITE BLOOD COUNT 7.7 10^3/uL (4.0-10.5)
--- NOTE | 2018-07-14 12:53 | EKG REPORT ---
SEVERITY:- NORMAL ECG - SINUS RHYTHM : Confirmed by: August Meredith MD 14-Jul-2018 12:52:19
[2018-07-14 12:57] LABS: APPEARANCE,URINE CLEAR; BILIRUBIN,URINE NEGATIVE (NEGATIVE); COLOR,URINE YELLOW; GLUCOSE, URINE NEGATIVE (NEGATIVE); KETONES,URINE NEGATIVE (NEGATIVE); LEUKOCYTE ESTERASE,URINE NEGATIVE (NEGATIVE); NITRITE,URINE NEGATIVE (NEGATIVE); PROTEIN,URINE NEGATIVE (NEGATIVE); URINE SPECIFIC GRAVITY 1.017; UROBILINOGEN,URINE NEGATIVE mg/dL (<2.0)
[2018-07-14 13:22] LABS: ALANINE AMINOTRANSFERASE 22 U/L (21-72); ALBUMIN 3.9 g/dL (3.5-5.0); ALKALINE PHOSPHATASE 105 U/L (38-126); ANION GAP 8 (5-19); ASPARTATE AMINO TRANSFERASE 28 U/L (17-59); BILIRUBIN,DIRECT 0.2 mg/dL (0.0-0.4); BILIRUBIN,TOTAL 0.4 mg/dL (0.2-1.3); BLOOD UREA NITROGEN 10 mg/dL (7-20); CARBON DIOXIDE 29 mmol/L (22-30); CHLORIDE 105 mmol/L (98-107); GLUCOSE 91 mg/dL (75-110); POTASSIUM 4.1 mmol/L (3.6-5.0); SODIUM 142.1 mmol/L (137-145)
[2018-07-14 13:22] LABS: URINE CREATININE 105.7 mg/dL (22-328); URINE PROTEIN 14.6 mg/dL (<12)
[2018-07-14 13:51] LABS: FREE T4 (FREE THYROXINE) 0.97 ng/dL (0.78-2.19)
[2018-07-14 14:05] LABS: THYROID STIMULATING HORMONE 2.43 uIU/mL (0.47-4.68)
--- NOTE | 2018-07-14 15:54 | RADIOLOGY REPORT (SQ) ---
EXAM DESCRIPTION: VENOUS BILATERAL LOWER COMPLETED DATE/TIME: 07/14/2018 3:44 pm REASON FOR STUDY: questionable DVT I50.20 UNSPECIFIED SYSTOLIC (CONGESTIVE) HEART FAILURE COMPARISON: None. TECHNIQUE: Dynamic and static benson scale and color images acquired of both lower extremity venous sy stems. Selected spectral images acquired with additional compression and augmentation maneuvers. Imag es stored on PACS. LIMITATIONS: None. FINDINGS: RIGHT LEG COMMON FEMORAL AND FEMORAL: Normal phasicity, compression and augmentation. No visualized echogenic m aterial on benson scale. No defects on color images. POPLITEAL: Normal compression and augmentation. No visualized echogenic material on benson scale. No de fects on color images. CALF VESSELS: Normal compression and augmentation. No visualized echogenic material on benson scale. No defects on color image. GSV AND SSV: Normal compression. No visualized echogenic material on benson scale. No defects on color images. ANY DEEP VENOUS INSUFFICIENCY: Not evaluated. ANY EVIDENCE OF POPLITEAL CYST: No. OTHER: No other significant finding. LEFT LEG COMMON FEMORAL AND FEMORAL: Normal phasicity, compression and augmentation. No visualized echogenic m aterial on benson scale. No defects on color images. POPLITEAL: Normal compression and augmentation. No visualized echogenic material on benson scale. No de fects on color images. CALF VESSELS: Normal compression and augmentation. No visualized echogenic material on benson scale. No defects on color images. GSV AND SSV: Normal compression. No visualized echogenic material on benson scale. No defects on color images. ANY DEEP VENOUS INSUFFICIENCY: Not evaluated. ANY EVIDENCE POPLITEAL CYST: No. OTHER: No other significant finding. IMPRESSION: NO EVIDENCE DVT OR SVT IN EITHER LEG. TECHNICAL DOCUMENTATION: JOB ID: [id number] [employer]- All Rights Reserved Reading location - IP/workstation name: [email or web address]
--- NOTE | 2018-07-14 18:53 | RADIOLOGY REPORT (SQ) ---
EXAM DESCRIPTION: CT CHEST WITHOUT COMPLETED DATE/TIME: 07/14/2018 6:41 pm REASON FOR STUDY: interstitial lung disease I50.20 UNSPECIFIED SYSTOLIC (CONGESTIVE) HEART FAILURE COMPARISON: None. TECHNIQUE: CT scan performed of the chest without intravenous contrast. Images reviewed with lung, soft tissue and bone windows. Reconstructed coronal and sagittal MPR images reviewed. All images st ored on PACS. All CT scanners at this facility use dose modulation, iterative reconstruction, and/or weight based d osing when appropriate to reduce radiation dose to as low as reasonably achievable (ALARA). [facility]: Dose Right [facility]: CareDose [facility]: Dose Right [facility]: Teradose 4D [facility]: [employer] RADIATION DOSE: CT Rad equipment meets quality standard of care and radiation dose reduction techniq ues were employed. CTDIvol: 12.4 mGy. DLP: 441 mGy-cm. mGy. LIMITATIONS: No technical limitations. FINDINGS: LUNGS AND PLEURA: No masses, infiltrates, or pneumothorax. No pleural effusions or pleura l calcifications. HILAR AND MEDIASTINAL STRUCTURES: No identified masses or abnormal nodes. No obvious aneurysm. HEART AND VASCULAR STRUCTURES: No aneurysm. No pericardial effusion. UPPER ABDOMEN: No significant findings. Limited exam. THYROID AND OTHER SOFT TISSUES: No masses. No adenopathy. BONES: Scoliosis. HARDWARE: None in the chest. OTHER: No other significant findings. IMPRESSION: No acute findings in the chest. Scoliosis. TECHNICAL DOCUMENTATION: JOB ID: [id number] Quality ID # [id number]: Final reports with documentation of one or more dose reduction techniques (e.g., Au tomated exposure control, adjustment of the mA and/or kV according to patient size, use of iterative reconstruction technique) 2010 [employer]- All Rights Reserved Reading location - IP/workstation name: [email or web address]
--- NOTE | 2018-07-14 19:48 | XCELERA REPORT ---
[address] [address] Transthoracic Echocardiogram Report Name: PRINCESS MIGUEL Age: 78 yrs Gender: Male : 1940 Patient Status: Inpatient Patient Location: [facility] Study Date: 07/14/2018 02:19 PM Height: 65 in Weight: 195 lb BSA: 2.0 m2 Reason For Study: CHF Ordering Physician: FELICITY VALDOVINOS Performed By: Dawn Lee Interpretation Summary No signif post pericardial effusion AV sclerosis, mild, 3 cusps normal configuration, no , but trace AR with PHT 631 ms and no LV enlargement. Mild mitral annular calcification, no MS and mild MR with no LA enlargement. Mild concentric LVH with LVEF 65% and stage I LV diastolic dysfunction. Not all LV segments examined for motion abnormality. the basal anterior and basal lateral wall not seen, the basal inferior wall and inferoseptal wall was hypokinetic. Right heart suboptimally imaged, likely no R heart enlargement, mild TR with RVSP estimated as 28 mm Hg meaning no pulm hypertension, RAP assumed to be 3mm Hg. Atrial septum not well interrogated. Clinical diagnosis of CHF not supported by findings on this ECHO. MMode/2D Measurements & Calculations RVDd: 3.9 cm LVIDd: 4.5 cm FS: 43.0 % Ao root diam: 2.6 cm IVSd: 1.0 cm LVIDs: 2.5 cm EDV(Teich): 90.8 ml LVPWd: 1.0 cm ESV(Teich): 23.3 ml Ao root area: 5.4 cm2 LA dimension: 4.0 cm EF(Teich): 74.3 % Doppler Measurements & Calculations MV E max malvin: MV P1/2t max malvin: Ao V2 max: AI max malvin: 89.8 cm/sec 89.8 cm/sec 133.6 cm/sec 361.6 cm/sec MV A max malvin: MV P1/2t: 56.1 msec Ao max PG: AI max P.2 cm/sec MVA(P1/2t): 3.9 cm2 7.1 mmHg 52.3 mmHg MV E/A: 0.92 MV dec slope: AI dec slope: 167.2 cm/sec2 469.0 cm/sec2 AI P1/2t: MV dec time: 633.3 msec 0.18 sec LV V1 max PG: PA V2 max: PI end-d malvin: TR max malvin: 5.9 mmHg 82.4 cm/sec 142.5 cm/sec 248.7 cm/sec LV V1 max: PA max P.7 mmHg TR max P.9 cm/sec 24.7 mmHg AV P1/2t-pr_phl: MV P1/2t-pr_phl: 633.3 msec 56.1 msec Left Ventricle The left ventricle is grossly normal size. There is mild concentric left ventricular hypertrophy. IVS and PW both 12mm. The left ventricular ejection fraction is normal. LV EF is 65%. Doppler measurements suggest impaired left ventricular relaxation, which is associated with grade I/IV or mild diastolic dysfunction. There is inferoseptal wall mild hypokinesis. There is basal inferior wall moderate hypokinesis. There is no thrombus. Right Ventricle The right ventricle is normal size. The right ventricular systolic function is normal. Atria The right atrium is normal. The left atrial size is normal. The interatrial septum is intact with no evidence for an atrial septal defect. Mitral Valve The mitral valve is normal in structure and function. There is mild mitral annular calcification. There is no evidence of mitral valve prolapse. There is no vegetation seen on the mitral valve. There is no mitral valve stenosis. There is a trace amount of mitral regurgitation. Aortic Valve The aortic valve is trileaflet. The aortic valve opens well. The aortic valve is sclerotic and shows some degree of functional abnormality. There is no aortic valvular vegetation. There is no aortic valve stenosis. There is a trace to mild amount of aortic regurgitation. Tricuspid Valve The tricuspid is normal in structure and function. There is a mild amount of tricuspid regurgitation. Best estimated RVSP is approximately 28 mm/Hg. Pulmonic Valve The pulmonic valve is not well visualized. There is a trace or physiologic amount of pulmonic regurgitation. Great Vessels The aortic root is normal size. Effusions There is no pericardial effusion. I WMSI = 1.29 % Normal = 71 Segments Size X - Cannot 1 - Normal 2 - 3 - Akinetic4 - 1-2 small Interpret Hypokinetic Dyskinetic 3-5 moderate 5 - 6-14 large Aneurysmal 15-16 diffuse : FELICITY VALDOVINOS > August Meredith
--- NOTE | 2018-07-14 20:17 | PDOC H&P ---
History of Present Illness Admission Date/PCP: 07/14/18 10:23 FELICITY VALDOVINOS MD History of Present Illness: PRINCESS MIGUEL is a 78 year old maleHe came to the office today for evaluation of bilateral leg swelling, the right leg swelling is more on the left leg swelling. He was admitted for evaluation a 2D echo was done, it demonstrated preserved ejection fraction of left ventricle grade 1 diastolic heart failure mild pulmonary hypertension. The urine protein creatinine ratio was normal the BNP was normal which virtually rule out CHF, CT chest was done without contrast there is no interstitial lung disease, patient was brought in for observation Past Medical History Cardiac Medical History: Reports: Hyperlipidema, Hypertension - meds x 7 years Pulmonary Medical History: Reports: Sleep Apnea Musculoskeltal Medical History: Reports: Arthritis Past Surgical History Past Surgical History: Reports: Appendectomy, Orthopedic Surgery - R knee and hip replacements, Tonsillectomy - as child, Vascular Surgery - AAA repair Social History Smoking Status: Never Smoker Frequency of Alcohol Use: None Hx Recreational Drug Use: No Drugs: None Hx Prescription Drug Abuse: No Family History Family History: Reviewed & Not Pertinent Parental Family History Reviewed: Yes Children Family History Reviewed: Yes Sibling(s) Family History Reviewed.: Yes Medication/Allergy Home Medications: RX: Hydrochlorothiazide 12.5 mg PO QAM 04/24/15 RX: Lansoprazole [Prevacid] 30 mg PO QAM 04/24/15 RX: Metoprolol Succinate [Toprol Xl] 1 tab PO QPM 05/13/15 RX: Meclizine HCl 25 mg PO Q8HP PRN #20 tablet 01/20/17 RX: Gabapentin 100 mg PO BID #20 capsule 02/09/18 Allergies/Adverse Reactions: No Known Allergies Allergy (Verified 05/02/17 09:14) Review of Systems Constitutional: ABSENT: chills, fever(s), headache(s), weight gain, weight loss Eyes: ABSENT: visual disturbances Ears: ABSENT: hearing changes Cardiovascular: PRESENT: edema. ABSENT: chest pain, dyspnea on exertion, orthropnea, palpitations Respiratory: ABSENT: cough, hemoptysis Gastrointestinal: ABSENT: abdominal pain, constipation, diarrhea, hematemesis, hematochezia, nausea, vomiting Genitourinary: ABSENT: dysuria, hematuria Musculoskeletal: ABSENT: joint swelling Integumentary: ABSENT: rash, wounds Neurological: ABSENT: abnormal gait, abnormal speech, confusion, dizziness, focal weakness, syncope Psychiatric: ABSENT: anxiety, depression, homidical ideation, suicidal ideation Endocrine: ABSENT: cold intolerance, heat intolerance, menstrual abnormalities, polydipsia, polyuria Hematologic/Lymphatic: ABSENT: easy bleeding, easy bruising, lymphadenopathy Physical Exam Vital Signs: Temp Pulse Resp BP Pulse Ox 98.1 F 73 18 166/79 H 91 L 07/14/18 19:03 07/14/18 19:03 07/14/18 19:03 07/14/18 10:44 07/14/18 19:03 Intake & Output 07/13/18 07/14/18 07/15/18 06:59 06:59 06:59 Intake Total 900 Output Total 1300 Balance -400 Weight 93.09 kg General appearance: PRESENT: no acute distress Head exam: PRESENT: atraumatic, normocephalic Eye exam: PRESENT: conjunctiva pink, EOMI, PERRLA Ear exam: PRESENT: normal external ear exam Respiratory exam: PRESENT: clear to auscultation karen Cardiovascular exam: PRESENT: +S1, +S2 GI/Abdominal exam: PRESENT: normal bowel sounds, soft Rectal exam: PRESENT: deferred Extremities exam: PRESENT: pedal edema, other - Bilateral lower extremity edema right more than left Neurological exam: PRESENT: alert, awake, oriented to person, oriented to place , oriented to time, oriented to situation, CN II-XII grossly intact Psychiatric exam: PRESENT: appropriate affect, normal mood Skin exam: PRESENT: dry, intact, warm Results Laboratory Results: 07/14/18 12:26 07/14/18 12:26 07/14/18 07/14/18 07/14/18 12:14 12:26 12:26 WBC 7.7 RBC 4.90 Hgb 14.5 Hct 43.1 MCV 88 MCH 29.6 MCHC 33.7 RDW 14.9 H Plt Count 231 Sodium 142.1 Potassium 4.1 Chloride 105 Carbon Dioxide 29 Anion Gap 8 BUN 10 Creatinine 0.75 Est GFR ( Amer) > 60 Est GFR (Non-Af Amer) > 60 Glucose 91 Calcium 9.0 Total Bilirubin 0.4 AST 28 ALT 22 Alkaline Phosphatase 105 Total Protein 8.0 Albumin 3.9 TSH Free T4 Urine Color YELLOW Urine Appearance CLEAR Urine pH 7.0 Ur Specific [place] 1.017 Urine Protein NEGATIVE Urine Glucose (UA) NEGATIVE Urine Ketones NEGATIVE Urine Blood NEGATIVE Urine Nitrite NEGATIVE Ur Leukocyte Esterase NEGATIVE Urine WBC (Auto) 1 Urine RBC (Auto) 2 07/14/18 12:26 WBC RBC Hgb Hct MCV MCH MCHC RDW Plt Count Sodium Potassium Chloride Carbon Dioxide Anion Gap BUN Creatinine Est GFR ( Amer) Est GFR (Non-Af Amer) Glucose Calcium Total Bilirubin AST ALT Alkaline Phosphatase Total Protein Albumin TSH 2.43 Free T4 0.97 Urine Color Urine Appearance Urine pH Ur Specific [place] Urine Protein Urine Glucose (UA) Urine Ketones Urine Blood Urine Nitrite Ur Leukocyte Esterase Urine WBC (Auto) Urine RBC (Auto) 07/14/18 12:26 NT-Pro-B Natriuret Pep 47 Impressions: Chest CT 07/14/18 00:00 IMPRESSION: No acute findings in the chest. Scoliosis. Chest X-Ray 07/14/18 00:00 IMPRESSION: CARDIAC ENLARGEMENT. VASCULAR CONGESTION. Venous Doppler Study 07/14/18 00:00 IMPRESSION: NO EVIDENCE DVT OR SVT IN EITHER LEG. Assessment & Plan - Diagnosis (1) Bilateral lower extremity edema Is this a current diagnosis for this admission?: Yes Plan: Patient was admitted for observation and evaluation of respiratory edema is most likely from the combination of mild pulmonary hypertension, obesity, venous insufficiency, patient is advised to use compression stockings bilaterally he was treated with Lasix infusion in the hospital (2) Mild pulmonary hypertension Is this a current diagnosis for this admission?: Yes
--- NOTE | 2018-07-14 20:23 | PDOC DISCHARGE SUMMARY ---
General - Admit/Disc Date/PCP Admission Date/Primary Care Provider: 07/14/18 10:23 FELICITY VALDOVINOS MD Discharge Date: 07/14/18 - Discharge Diagnosis (1) Bilateral lower extremity edema Is this a current diagnosis for this admission?: Yes (2) Mild pulmonary hypertension Is this a current diagnosis for this admission?: Yes - Additional Information Discharge Diet: As Tolerated Discharge Activity: Activity As Tolerated Home Medications: RX: Hydrochlorothiazide 12.5 mg PO QAM 04/24/15 RX: Lansoprazole [Prevacid] 30 mg PO QAM 04/24/15 RX: Metoprolol Succinate [Toprol Xl] 1 tab PO QPM 05/13/15 RX: Meclizine HCl 25 mg PO Q8HP PRN #20 tablet 01/20/17 RX: Gabapentin 100 mg PO BID #20 capsule 02/09/18 History of Present Illness History of Present Illness: PRINCESS MIGUEL is a 78 year old maleHe came to the office today for evaluation of bilateral leg swelling, the right leg swelling is more on the left leg swelling. He was admitted for evaluation a 2D echo was done, it demonstrated preserved ejection fraction of left ventricle grade 1 diastolic heart failure mild pulmonary hypertension. The urine protein creatinine ratio was normal the BNP was normal which virtually rule out CHF, CT chest was done without contrast there is no interstitial lung disease, patient was brought in for observation Hospital Course Hospital Course: Patient was admitted for observation, management of bilateral lower extremity edema, he was treated with furosemide infusion.2D echo was done he demonstrated preserved ejection fraction of left ventricle, mild pulmonary hypertension. The B type natruretic peptide was normal this virtually rule out CHF. The urine protein creatinine ratio was normal this rule out nephrotic syndrome the LFT was normal, the ultimate treatment is for patient to apply compression stockings bilaterally Physical Exam Vital Signs: Temp Pulse Resp BP Pulse Ox 98.1 F 73 18 166/79 H 91 L 07/14/18 19:03 07/14/18 19:03 07/14/18 19:03 07/14/18 10:44 07/14/18 19:03 Intake & Output 07/13/18 07/14/18 07/15/18 06:59 06:59 06:59 Intake Total 900 Output Total 1300 Balance -400 Weight 93.09 kg Eye exam: PRESENT: conjunctiva pink, EOMI, PERRLA Respiratory exam: PRESENT: clear to auscultation karen Cardiovascular exam: PRESENT: RRR, +S1, +S2 GI/Abdominal exam: PRESENT: normal bowel sounds, soft Rectal exam: PRESENT: deferred Extremities exam: PRESENT: pedal edema Neurological exam: PRESENT: alert, awake, oriented to person, oriented to place , oriented to time, oriented to situation, CN II-XII grossly intact Psychiatric exam: PRESENT: appropriate affect, normal mood Skin exam: PRESENT: dry, intact, warm Results Laboratory Results: 07/14/18 12:26 07/14/18 12:26 07/14/18 07/14/18 07/14/18 12:14 12:26 12:26 WBC 7.7 RBC 4.90 Hgb 14.5 Hct 43.1 MCV 88 MCH 29.6 MCHC 33.7 RDW 14.9 H Plt Count 231 Sodium 142.1 Potassium 4.1 Chloride 105 Carbon Dioxide 29 Anion Gap 8 BUN 10 Creatinine 0.75 Est GFR ( Amer) > 60 Est GFR (Non-Af Amer) > 60 Glucose 91 Calcium 9.0 Total Bilirubin 0.4 AST 28 ALT 22 Alkaline Phosphatase 105 Total Protein 8.0 Albumin 3.9 TSH Free T4 Urine Color YELLOW Urine Appearance CLEAR Urine pH 7.0 Ur Specific [place] 1.017 Urine Protein NEGATIVE Urine Glucose (UA) NEGATIVE Urine Ketones NEGATIVE Urine Blood NEGATIVE Urine Nitrite NEGATIVE Ur Leukocyte Esterase NEGATIVE Urine WBC (Auto) 1 Urine RBC (Auto) 2 07/14/18 12:26 WBC RBC Hgb Hct MCV MCH MCHC RDW Plt Count Sodium Potassium Chloride Carbon Dioxide Anion Gap BUN Creatinine Est GFR ( Amer) Est GFR (Non-Af Amer) Glucose Calcium Total Bilirubin AST ALT Alkaline Phosphatase Total Protein Albumin TSH 2.43 Free T4 0.97 Urine Color Urine Appearance Urine pH Ur Specific [place] Urine Protein Urine Glucose (UA) Urine Ketones Urine Blood Urine Nitrite Ur Leukocyte Esterase Urine WBC (Auto) Urine RBC (Auto) 07/14/18 12:26 NT-Pro-B Natriuret Pep 47 Impressions: Chest CT 07/14/18 00:00 IMPRESSION: No acute findings in the chest. Scoliosis. Chest X-Ray 07/14/18 00:00 IMPRESSION: CARDIAC ENLARGEMENT. VASCULAR CONGESTION. Venous Doppler Study 07/14/18 00:00 IMPRESSION: NO EVIDENCE DVT OR SVT IN EITHER LEG. Qualifiers - * PATIENT BEING DISCHARGED WITH ANY OF THE FOLLOWING DIAGNOSIS: No
== END 2018-07-14 19:16 | disposition home or self-care (01) ==
LOC: 3N 10:23
PROVIDERS: ADMIT Internal Medicine; ATTEND Internal Medicine
DX: R60.0 Localized edema (principal); I27.20 Pulmonary hypertension, unspecified; M19.90 Unspecified osteoarthritis, unspecified site; I10 Essential (primary) hypertension; Z79.899 Other long term (current) drug therapy; Z96.651 Presence of right artificial knee joint; Z96.641 Presence of right artificial hip joint
CPT/HCPCS: 36415; 84439; 84156; 84443; 82570; 85027; 80076; 80048; 81001; 83880; 93306; 93970; 71046; 71250; 93005; 93010; G0378; G0379; J1940; J7050

== ENCOUNTER → 2018-12-01 | Outpatient (CLI) | payer MEDICAID, MEDICARE ==
--- NOTE | 2018-12-01 13:12 | RADIOLOGY REPORT (SQ) ---
EXAM DESCRIPTION: CHEST 2 VIEWS COMPLETED DATE/TIME: 12/01/2018 12:35 pm REASON FOR STUDY: SOB R06.02 SHORTNESS OF BREATH COMPARISON: 07/14/2018 NUMBER OF VIEWS: Two view TECHNIQUE: Frontal and lateral radiographic images of the chest acquired. LIMITATIONS: None. FINDINGS: LUNGS AND PLEURA: Chronic interstitial changes. Left basilar atelectasis. No effusions. MEDIASTINUM AND HILAR STRUCTURES: Stable heart size and mediastinal structures. HEART AND VASCULAR STRUCTURES: Stable appearance. BONES: No acute findings. HARDWARE: None in the chest. OTHER: No other significant finding. IMPRESSION: Left basilar atelectasis. TECHNICAL DOCUMENTATION: JOB ID: [id number] [employer]- All Rights Reserved Reading location - IP/workstation name: [email or web address]
--- NOTE | 2018-12-01 13:56 | RADIOLOGY REPORT (SQ) ---
EXAM DESCRIPTION: NM LUNG VENT/PERF SCAN COMPLETED DATE/TIME: 12/01/2018 1:26 pm REASON FOR STUDY: SHORTNESS OF BREATH R06.02 SHORTNESS OF BREATH COMPARISON: None. RADIONUCLIDE AND DOSE: 5.4 millicuries TC-99m MAA Intravenous 32.5 millicuries TC-99m DTPA Inhaled aerosol TECHNIQUE: Eight views of the lungs acquired post ventilation of DTPA aerosol. Eight matching views of the lungs acquired following injection of MAA. LIMITATIONS: None. FINDINGS: VENTILATION: Nondiagnostic. PERFUSION: No segmental or lobar defects to suggest pulmonary emboli. OTHER: No other significant finding. IMPRESSION: No emboli demonstrated on the perfusion study. Ventilation study nondiagnostic. TECHNICAL DOCUMENTATION: JOB ID: [id number] [employer]- All Rights Reserved Reading location - IP/workstation name: [email or web address]
== END ==
LOC: RAD 11:18
PROVIDERS: ATTEND Internal Medicine
DX: R06.02 Shortness of breath (principal)
CPT/HCPCS: 71046; 78582; A9540; A9567; Q9969

== ENCOUNTER 2019-01-14 18:54 | Emergency (ER) | payer MEDICARE ==
--- NOTE | 2019-01-14 19:25 | ER Document Report ---
ED Medical Screen (RME) - General Chief Complaint: Leg Swelling Stated Complaint: LEG SWELLING Time Seen by Provider: 01/14/19 19:17 Primary Care Provider: FELICITY VALDOVINOS MD [Primary Care Provider] - Follow up as needed Mode of Arrival: Wheelchair Information source: Patient Notes: 78-year-old male presented to ED for complaint of bilateral leg swelling for ove r 2 years. He states is been getting worse for about the last year. He has a height history of high blood pressure right knee and hip replacement and abdominal aneurysm and CHF. Family states that he lives by himself and they just noticed to have big his legs worse today. He states they have been swollen for a long time. He states the doctor did not tell him while he was falling but they have been swollen. Patient is alert oriented respirations regular and unlabored he does speak with full sentences and is able to give me his medical history. I have greeted and performed a rapid initial assessment of this patient. A comprehensive ED assessment and evaluation of the patient, analysis of test results and completion of medical decision making process will be conducted by an additional ED providers. TRAVEL OUTSIDE OF THE [place] IN LAST 30 DAYS: No - Related Data Allergies/Adverse Reactions: No Known Allergies Allergy (Verified 01/14/19 18:56) Past Medical History - Past Medical History Cardiac Medical History: Reports: Hx Hypercholesterolemia, Hx Hypertension - meds x 7 years Pulmonary Medical History: Reports: Hx Sleep Apnea Neurological Medical History: Denies: Hx Cerebrovascular Accident Renal/ Medical History: Reports: Hx Benign Prostatic Hyperplasia - nocturia x 3-4/night. Denies: Hx Kidney Stones, Hx Peritoneal Dialysis GI Medical History: Denies: Hx Pancreatitis Musculoskeltal Medical History: Reports Hx Arthritis, Denies Hx Muscular Dystrophy Psychiatric Medical History: Reports: Hx Anxiety Traumatic Medical History: Denies: Hx Fractures Past Surgical History: Reports: Hx Appendectomy, Hx Orthopedic Surgery - R knee and hip replacements, Hx Tonsillectomy - as child, Hx Vascular Surgery - AAA repair. Denies: Hx Bowel Surgery - Immunizations Immunizations up to date: Yes Hx Diphtheria, Pertussis, Tetanus Vaccination: Yes Physical Exam - Vital signs Vitals: Temp Pulse Resp BP Pulse Ox 97.7 F 73 16 155/68 H 97 01/14/19 19:04 01/14/19 19:04 01/14/19 19:04 01/14/19 19:04 01/14/19 19:04 Course - Vital Signs Vital signs: Temp Pulse Resp BP Pulse Ox 97.7 F 73 16 155/68 H 97 01/14/19 19:04 01/14/19 19:04 01/14/19 19:04 01/14/19 19:04 01/14/19 19:04 Doctor's Discharge - Discharge Referrals: FELICITY VALDOVINOS MD [Primary Care Provider] - Follow up as needed
[2019-01-14 19:57] LABS: ABSOLUTE BASOPHILS # (AUTO) 0.1 10^3/uL (0.0-0.2); ABSOLUTE EOSINOPHILS # (AUTO) 0.4 10^3/uL (0.0-0.6); ABSOLUTE LYMPHOCYTES (AUTO) 2.4 10^3/uL (0.5-4.7); ABSOLUTE NEUT (AUTO) 4.1 10^3/uL (1.7-8.2); BASOPHILS % (AUTO) 0.9 % (0-2); EOSINOPHILS % (AUTO) 4.5 % (0-6); HEMOGLOBIN 14.5 g/dL (13.5-17.0); LYMPHOCYTES % (AUTO) 30.1 % (13-45); MEAN CORPUSCULAR HGB CONC 33.8 g/dL (32.0-36.0); MEAN CORPUSCULAR VOLUME 89 fl (80-97); MONOCYTES % (AUTO) 13.1 % (3-13); PLATELET COUNT 238 10^3/uL (150-450); RED BLOOD COUNT 4.84 10^6/uL (4.35-5.55); RED CELL DISTRIBUTION WIDTH 14.6 % (11.5-14.0); SEGMENTED NEUTROPHILS % (AUTO) 51.4 % (42-78); TOTAL CELLS COUNTED % (AUTO) 100 %; WHITE BLOOD COUNT 7.9 10^3/uL (4.0-10.5)
[2019-01-14 20:15] LABS: ALANINE AMINOTRANSFERASE 26 U/L (21-72); ALBUMIN 4.1 g/dL (3.5-5.0); ALKALINE PHOSPHATASE 92 U/L (38-126); ANION GAP 10 (5-19); ASPARTATE AMINO TRANSFERASE 21 U/L (17-59); BILIRUBIN,DIRECT 0.2 mg/dL (0.0-0.4); BILIRUBIN,TOTAL 0.2 mg/dL (0.2-1.3); BLOOD UREA NITROGEN 17 mg/dL (7-20); CALCIUM 9.5 mg/dL (8.4-10.2); CARBON DIOXIDE 27 mmol/L (22-30); CHLORIDE 103 mmol/L (98-107); GLUCOSE 93 mg/dL (75-110); POTASSIUM 4.2 mmol/L (3.6-5.0); SODIUM 139.8 mmol/L (137-145); TOTAL PROTEIN 8.1 g/dL (6.3-8.2)
[2019-01-14 20:23] LABS: CREATINE KINASE MB 0.65 ng/mL (<4.55)
[2019-01-14 20:40] LABS: APPEARANCE,URINE CLEAR; BILIRUBIN,URINE NEGATIVE (NEGATIVE); COLOR,URINE YELLOW; GLUCOSE, URINE NEGATIVE (NEGATIVE); KETONES,URINE NEGATIVE (NEGATIVE); LEUKOCYTE ESTERASE,URINE NEGATIVE (NEGATIVE); NITRITE,URINE NEGATIVE (NEGATIVE); PROTEIN,URINE NEGATIVE (NEGATIVE); URINE SPECIFIC GRAVITY 1.017; UROBILINOGEN,URINE NEGATIVE mg/dL (<2.0)
--- NOTE | 2019-01-14 20:53 | RADIOLOGY REPORT (SQ) ---
EXAM DESCRIPTION: XR CHEST 2 VIEWS COMPLETED DATE/TME: 01/14/2019 19:18 CLINICAL HISTORY: 78 years, Male, bilateral pedal edema EXAM DESCRIPTION: CLINICAL HISTORY: bilateral pedal edema COMPARISON: 05/02/2017 FINDINGS: Two views of the chest are submitted. Cardiac silhouette appears mildly enlarged. There is mild increase in bilateral mild pulmonary edema and engorgement of the central pulmonary vasculature. There is moderate rightward scoliosis. IMPRESSION: Mildly increased pulmonary edema.
--- NOTE | 2019-01-14 22:10 | ER Document Report ---
ED General - General Chief Complaint: Leg Swelling Stated Complaint: LEG SWELLING Time Seen by Provider: 01/14/19 19:17 Primary Care Provider: FELICITY VALDOVINOS MD [Primary Care Provider] - Follow up as needed Mode of Arrival: Wheelchair Information source: Patient TRAVEL OUTSIDE OF THE [place] IN LAST 30 DAYS: No - HPI Notes: Patient is a 78-year-old gentleman who presents to the emergency department for evaluation of lower extremity edema. He states his been going on since 2014. He seen his primary care doctor about it. He is been referred to cardiology about it. He actually has a stress test ordered this week. He was prescribed compression stockings, but he states he is too much difficulty getting them on so he does not wear them. He states he is really had an increase in the swelling over the last month or 2. On further questioning, however, his sister forced him to come here today. He states he did not necessarily want to come. She was concerned because there seemed to be some drainage from the legs, so she wanted him evaluated. No fevers or chills. No nausea or vomiting. Taking his medications as prescribed. He denies any chest pain or difficulty breathing at this time. - Related Data Allergies/Adverse Reactions: No Known Allergies Allergy (Verified 01/14/19 18:56) Past Medical History - General Information source: Patient - Social History Smoking Status: Never Smoker Chew tobacco use (# tins/day): No Frequency of alcohol use: None Drug Abuse: None Family History: Reviewed & Not Pertinent Patient has suicidal ideation: No Patient has homicidal ideation: No - Past Medical History Cardiac Medical History: Reports: Hx Hypercholesterolemia, Hx Hypertension - meds x 7 years Pulmonary Medical History: Reports: Hx Sleep Apnea Neurological Medical History: Denies: Hx Cerebrovascular Accident Renal/ Medical History: Reports: Hx Benign Prostatic Hyperplasia - nocturia x 3-4/night. Denies: Hx Kidney Stones, Hx Peritoneal Dialysis GI Medical History: Denies: Hx Pancreatitis Musculoskeletal Medical History: Reports Hx Arthritis, Denies Hx Muscular Dystrophy Psychiatric Medical History: Reports: Hx Anxiety Traumatic Medical History: Denies: Hx Fractures Past Surgical History: Reports: Hx Appendectomy, Hx Orthopedic Surgery - R knee and hip replacements, Hx Tonsillectomy - as child, Hx Vascular Surgery - AAA repair. Denies: Hx Bowel Surgery - Immunizations Immunizations up to date: Yes Hx Diphtheria, Pertussis, Tetanus Vaccination: Yes Hx Pneumococcal Vaccination: 09/27/10 Review of Systems - Review of Systems Constitutional: No symptoms reported EENT: No symptoms reported Cardiovascular: See HPI Respiratory: No symptoms reported Gastrointestinal: No symptoms reported Genitourinary: No symptoms reported Musculoskeletal: See HPI Skin: No symptoms reported Neurological/Psychological: No symptoms reported Physical Exam - Vital signs Vitals: Temp Pulse Resp BP Pulse Ox 97.7 F 73 16 155/68 H 97 01/14/19 19:04 01/14/19 19:04 01/14/19 19:04 01/14/19 19:04 01/14/19 19:04 - Notes Notes: Vital signs reviewed, please refer to chart. Patient is normocephalic, atraumatic. Pupils equal round, reactive to light. Neck is supple without meningismus. Heart is regular rate and rhythm. Lungs are clear to auscultation bilaterally. Abdomen is soft, nontender, normoactive bowel sounds throughout. Extremities reveal 3+ pitting edema bilateral calves. He has extensive signs of excoriation and wounds to the leg, some with mild transudate of fluids noted. There is very mild pallor. No induration. Peripheral pulses are equal. Skin is warm and dry. Patient is awake, alert, neurological exam is nonfocal. Course - Re-evaluation Re-evalutation: 01/14/19 22:08 Patient presents emergency department for evaluation. His legs have been swollen for several years. He is not hypoxic. Radiology read his chest x-ray is showing may be increased vascular congestion, but the patient is 97% on room air and has no difficulty breathing. I did compare this to prior study and I do not see a significant difference. Patient's proBNP was normal. He is already being evaluated by cardiology. He is Uriah seen his primary care physician for this. I do not see any indication for intervention at this time. I will go ahead and give him a slip for bilateral Dopplers, as I cannot get them acutely tonight. Otherwise we will have him follow-up with his primary care physician this week, and cardiology as scheduled. He is return to the ED with worsening or new concerning symptoms of any sort. - Vital Signs Vital signs: Temp Pulse Resp BP Pulse Ox 97.7 F 73 16 155/68 H 97 01/14/19 19:04 01/14/19 19:04 01/14/19 19:04 01/14/19 19:04 01/14/19 19:04 - Laboratory Result Diagrams: 01/14/19 19:37 01/14/19 19:37 Laboratory results interpreted by me: 01/14/19 01/14/19 19:37 20:26 RDW 14.6 H Monocytes % 13.1 H Urine Blood SMALL H - Diagnostic Test Radiology reviewed: Image reviewed, Reports reviewed Radiology results interpreted by me: 01/14/19 22:08 No significant change from prior study Discharge - Discharge Clinical Impression: Lower extremity edema, Bilateral lower extremity edema Condition: Stable Disposition: HOME, SELF-CARE Instructions: Edema, Peripheral ([facility]) Additional Instructions: Keep your legs clean with soap and water, keep moisturized with an emollient moisturizer such as Aquaphor. Take form to registration to have bilateral Dopplers performed, to rule out DVT. Follow-up with your primary care physician this week, cardiology as scheduled. Return to the emergency department with worsening or new concerning symptoms of any sort. Forms: Follow-Up Radiology Testing Referrals: FELICITY VALDOVINOS MD [Primary Care Provider] - Follow up as needed
[2019-01-14 22:22] VITALS: BP 158/91
== END 2019-01-14 22:30 | disposition home or self-care (01) ==
LOC: ER 18:54
DX: R60.0 Localized edema (principal); M79.89 Other specified soft tissue disorders; I10 Essential (primary) hypertension
CPT/HCPCS: 36415; 71046; 80053; 81001; 82553; 83880; 85025; 99284

== ENCOUNTER 2019-05-09 11:37 | Observation (INO) | payer MEDICARE ==
[2019-05-09 14:54] LABS: HEMATOCRIT 41.2 % (37.9-51.0); HEMOGLOBIN 13.5 g/dL (13.5-17.0); MEAN CORPUSCULAR HEMOGLOBIN 28.7 pg (27.0-33.4); MEAN CORPUSCULAR HGB CONC 32.7 g/dL (32.0-36.0); MEAN CORPUSCULAR VOLUME 88 fl (80-97); PLATELET COUNT 222 10^3/uL (150-450); RED CELL DISTRIBUTION WIDTH 14.2 % (11.5-14.0); WHITE BLOOD COUNT 7.4 10^3/uL (4.0-10.5)
[2019-05-09 15:14] LABS: ALBUMIN 4.1 g/dL (3.5-5.0); ALKALINE PHOSPHATASE 104 U/L (38-126); ANION GAP 11 (5-19); ASPARTATE AMINO TRANSFERASE 24 U/L (17-59); BILIRUBIN,DIRECT 0.2 mg/dL (0.0-0.4); BILIRUBIN,TOTAL 0.5 mg/dL (0.2-1.3); BLOOD UREA NITROGEN 12 mg/dL (7-20); CALCIUM 9.1 mg/dL (8.4-10.2); CARBON DIOXIDE 26 mmol/L (22-30); CHLORIDE 104 mmol/L (98-107); GLUCOSE 108 mg/dL (75-110); TOTAL PROTEIN 7.7 g/dL (6.3-8.2)
[2019-05-09] MEDS: NORMAL SALINE 250 ML with FUROSEMIDE 250 MG IV PRN ×2 (15:39)
[2019-05-10] MEDS: NORMAL SALINE 250 ML with FUROSEMIDE 250 MG IV PRN ×2 (06:40)
--- NOTE | 2019-05-10 08:20 | XCELERA REPORT ---
[address] [id number] Lower Extremity Venous Evaluation Procedure: Color flow and duplex imaging of the veins of the right lower extremity as well as the left Common Femoral vein. Right Sided Venous Evaluation Oval structure with echogenic center, consistent with Lymph node seen in groin area. Study challenging due to patient difficulty with cooperating with study maneuvers. Normal vessel filling wall to wall, compression and augmentation as well as Colour flow down to the infrageniculate veins. Interpretation Summary No duplex evidence of DVT or obstruction in the right lower extremity nor in the left Common Femoral vein. Limitations as noted. Presence of enlarged right groin lymph node. Name: PRINCESS MIGUEL Age: 79 yrs Gender: Male : 1940 Patient Status: Inpatient Patient Location: [address] [place] [address] Study Date: 05/09/2019 06:26 PM Reason For Study: LEG SWELLING Ordering Physician: FELICITY VALDOVINOS Performed By: Magalis Hart : FELICITY VALDOVINOS > Thuan Marte
[2019-05-10] MEDS: ENOXAPARIN SODIUM INJ 40 MG/0.4 ML DISP.SYRIN SUBCUT SCH (10:20)
[2019-05-10] MEDS ORDERED: (PENDING PHARMACY ID) (Umeclidinium Brm/Vilanterol Tr [Anoro Ellipta 62.5-25 Mcg Inh] 1 EA IH SCH (15:45)
[2019-05-10] MEDS ORDERED: ACETAMINOPHEN 325 MG TABLET PO PRN (16:02)
[2019-05-10] MEDS: METOPROLOL SUCCINATE 50 MG TAB.SR.24H PO SCH (16:30)
--- NOTE | 2019-05-10 16:41 | PDOC H&P ---
History of Present Illness Admission Date/PCP: 05/09/19 11:37 MARTIR HAYNES MD History of Present Illness: PRINCESS MIGUEL is a 79 year old male, he has a history of lymphedema of the l ower extremities, he came to the office for evaluation of increased swelling of the right leg, on evaluation in the office there was tremendous swelling of the right leg when compared to the left leg, he was admitted directly from the office into the hospital for further evaluation of his symptoms. A stat venous Doppler of the leg was negative for deep vein thrombosis Past Medical History Cardiac Medical History: Reports: Hyperlipidema, Hypertension - meds x 7 years Pulmonary Medical History: Reports: Sleep Apnea Musculoskeltal Medical History: Reports: Arthritis Past Surgical History Past Surgical History: Reports: Appendectomy, Orthopedic Surgery - R knee and hip replacements, Pacemaker, Tonsillectomy - as child, Vascular Surgery - AAA repair Social History Smoking Status: Never Smoker Frequency of Alcohol Use: None Hx Recreational Drug Use: No Drugs: None Hx Prescription Drug Abuse: No Family History Family History: Reviewed & Not Pertinent Parental Family History Reviewed: Yes Children Family History Reviewed: Yes Sibling(s) Family History Reviewed.: Yes Medication/Allergy Home Medications: Furosemide [Lasix 40 mg Tablet] 40 mg PO DAILY 05/09/19 Hydrochlorothiazide [Hydrodiuril 12.5 mg Tablet] 12.5 mg PO QAM 05/09/19 Meclizine HCl [Antivert 25 mg Tablet] 25 mg PO TID PRN 05/09/19 Metolazone [Zaroxolyn] 10 mg PO DAILY 05/09/19 Metoprolol Succinate [Toprol XL 100 mg Tablet] 100 mg PO DAILY 05/09/19 Mineral Oil/Hydrophil Petrolat [Petrolatum Base Ointment] 1 applic TP DAILY 05/09/19 Olopatadine HCl [Patanol 0.1% Oph Soln 5 Ml Bottle] 1 drop OU BID 05/09/19 Petrolatum,White [Petroleum Jelly] 1 applic TP DAILY 05/09/19 Umeclidinium Brm/Vilanterol Tr [Anoro Ellipta 62.5-25 Mcg INH] 1 each IH DAILY 05/09/19 Allergies/Adverse Reactions: No Known Allergies Allergy (Verified 01/14/19 18:56) Review of Systems Constitutional: ABSENT: chills, fever(s), headache(s), weight gain, weight loss Eyes: ABSENT: visual disturbances Ears: ABSENT: hearing changes Cardiovascular: PRESENT: edema. ABSENT: chest pain, dyspnea on exertion, orthropnea, palpitations Respiratory: ABSENT: cough, hemoptysis Gastrointestinal: ABSENT: abdominal pain, constipation, diarrhea, hematemesis, hematochezia, nausea, vomiting Genitourinary: ABSENT: dysuria, hematuria Musculoskeletal: ABSENT: joint swelling Integumentary: ABSENT: rash, wounds Neurological: ABSENT: abnormal gait, abnormal speech, confusion, dizziness, focal weakness, syncope Psychiatric: ABSENT: anxiety, depression, homidical ideation, suicidal ideation Endocrine: ABSENT: cold intolerance, heat intolerance, menstrual abnormalities, polydipsia, polyuria Hematologic/Lymphatic: ABSENT: easy bleeding, easy bruising, lymphadenopathy Physical Exam Vital Signs: Temp Pulse Resp BP Pulse Ox 98.9 F 89 17 142/91 H 97 05/10/19 15:49 05/10/19 15:49 05/10/19 15:49 05/10/19 15:49 05/10/19 15:49 Intake & Output 05/09/19 05/10/19 05/11/19 06:59 06:59 06:59 Intake Total 0 330 Output Total 4155 400 Balance -2094 Weight 90.7 kg General appearance: PRESENT: no acute distress, well-developed, well-nourished Head exam: PRESENT: atraumatic, normocephalic Eye exam: PRESENT: conjunctiva pink, EOMI, PERRLA. ABSENT: scleral icterus Ear exam: PRESENT: normal external ear exam Mouth exam: PRESENT: moist, tongue midline Neck exam: PRESENT: full ROM Respiratory exam: PRESENT: clear to auscultation karen Cardiovascular exam: PRESENT: RRR, +S1, +S2 Pulses: PRESENT: normal dorsalis pedis pul, +2 pedal pulses bilateral Vascular exam: PRESENT: normal capillary refill GI/Abdominal exam: PRESENT: normal bowel sounds, soft Rectal exam: PRESENT: deferred Extremities exam: PRESENT: pedal edema Neurological exam: PRESENT: alert, awake, oriented to person, oriented to place, oriented to time, oriented to situation, CN II-XII grossly intact Psychiatric exam: PRESENT: appropriate affect, normal mood Skin exam: PRESENT: dry, intact, warm Results Laboratory Results: 05/09/19 14:10 05/09/19 14:10 Assessment & Plan - Diagnosis (1) Chronic venous hypertension (idiopathic) with inflammation of right lower extremity Is this a current diagnosis for this admission?: Yes Plan: Patient is admitted for the management of leg edema to be treated with Lasix infusion (2) Lymphedema Is this a current diagnosis for this admission?: Yes
[2019-05-10 16:54] LABS: APPEARANCE,URINE CLEAR; BILIRUBIN,URINE NEGATIVE (NEGATIVE); COLOR,URINE STRAW; GLUCOSE, URINE NEGATIVE (NEGATIVE); KETONES,URINE NEGATIVE (NEGATIVE); LEUKOCYTE ESTERASE,URINE NEGATIVE (NEGATIVE); NITRITE,URINE NEGATIVE (NEGATIVE); PROTEIN,URINE NEGATIVE (NEGATIVE); URINE SPECIFIC GRAVITY 1.006; UROBILINOGEN,URINE NEGATIVE mg/dL (<2.0)
[2019-05-10 17:43] LABS: ALBUMIN 4.5 g/dL (3.5-5.0); ALKALINE PHOSPHATASE 107 U/L (38-126); ANION GAP 12 (5-19); ASPARTATE AMINO TRANSFERASE 34 U/L (17-59); BILIRUBIN,DIRECT 0.4 mg/dL (0.0-0.4); BILIRUBIN,TOTAL 0.6 mg/dL (0.2-1.3); BLOOD UREA NITROGEN 16 mg/dL (7-20); CALCIUM 9.4 mg/dL (8.4-10.2); CARBON DIOXIDE 33 mmol/L (22-30); CHLORIDE 95 mmol/L (98-107); GLUCOSE 128 mg/dL (75-110); POTASSIUM 3.5 mmol/L (3.6-5.0); TOTAL PROTEIN 8.7 g/dL (6.3-8.2)
--- NOTE | 2019-05-10 20:27 | PDOC DISCHARGE SUMMARY ---
General - Admit/Disc Date/PCP Admission Date/Primary Care Provider: 05/09/19 11:37 MARTIR HAYNES MD Discharge Date: 05/11/19 - Discharge Diagnosis (1) Chronic venous hypertension (idiopathic) with inflammation of right lower extremity Is this a current diagnosis for this admission?: Yes (2) Lymphedema Is this a current diagnosis for this admission?: Yes - Additional Information Home Medications: Hydrochlorothiazide [Hydrodiuril 12.5 mg Tablet] 12.5 mg PO QAM 05/09/19 Meclizine HCl [Antivert 25 mg Tablet] 25 mg PO TID PRN 05/09/19 Metoprolol Succinate [Toprol XL 100 mg Tablet] 100 mg PO DAILY 05/09/19 Mineral Oil/Hydrophil Petrolat [Petrolatum Base Ointment] 1 applic TP DAILY 05/09/19 Olopatadine HCl [Patanol 0.1% Oph Soln 5 ml] 1 drop OU BID 05/09/19 Petrolatum,White [Petroleum Jelly] 1 applic TP DAILY 05/09/19 Umeclidinium Brm/Vilanterol Tr [Anoro Ellipta 62.5-25 Mcg INH] 1 each IH DAILY 05/09/19 History of Present Illness History of Present Illness: PRINCESS MIGUEL is a 79 year old male, he has a history of lymphedema of the lower extremities, he came to the office for evaluation of increased swelling of the right leg, on evaluation in the office there was tremendous swelling of the right leg when compared to the left leg, he was admitted directly from the office into the hospital for further evaluation of his symptoms. A stat venous Doppler of the leg was negative for deep vein thrombosis Hospital Course Hospital Course: Patient with lymphedema of the lower extremities, he has tremendous increased s welling of the right leg that is more consistent with exacerbation of the chronic lymphedema, he was admitted for observation and management of his symptoms. A venous Doppler was done ,deep vein thrombosis was rule as a possible etiology of the swelling, he was treated with furosemide infusion, he diuresed quite well. 2D echo was done the preliminary result demonstrated normal ejection fraction of the left ventricle Physical Exam Vital Signs: Temp Pulse Resp BP Pulse Ox 98 F 76 14 147/90 H 98 05/10/19 19:00 05/10/19 19:00 05/10/19 19:00 05/10/19 19:00 05/10/19 19:00 Intake & Output 05/09/19 05/10/19 05/11/19 06:59 06:59 06:59 Intake Total 2059 330 Output Total 0571 900 Balance -2094 - Weight 90.7 kg General appearance: PRESENT: no acute distress Head exam: PRESENT: atraumatic, normocephalic Eye exam: PRESENT: PERRLA Neck exam: PRESENT: full ROM Respiratory exam: PRESENT: clear to auscultation karen Cardiovascular exam: PRESENT: RRR, +S1, +S2 Vascular exam: PRESENT: normal capillary refill GI/Abdominal exam: PRESENT: normal bowel sounds, soft Rectal exam: PRESENT: deferred Neurological exam: PRESENT: alert, CN II-XII grossly intact Psychiatric exam: PRESENT: appropriate affect, normal mood Skin exam: PRESENT: dry, intact, warm Results Laboratory Results: 05/09/19 14:10 05/10/19 17:17 05/10/19 05/10/19 16:35 17:17 Sodium 139.6 Potassium 3.5 L Chloride 95 L Carbon Dioxide 33 H Anion Gap 12 BUN 16 Creatinine 1.11 Est GFR ( Amer) > 60 Est GFR (Non-Af Amer) > 60 Glucose 128 H Calcium 9.4 Total Bilirubin 0.6 AST 34 Alkaline Phosphatase 107 Total Protein 8.7 H Albumin 4.5 Urine Color STRAW Urine Appearance CLEAR Urine pH 6.0 Ur Specific Grawn 1.006 Urine Protein NEGATIVE Urine Glucose (UA) NEGATIVE Urine Ketones NEGATIVE Urine Blood SMALL H Urine Nitrite NEGATIVE Ur Leukocyte Esterase NEGATIVE Urine WBC (Auto) 1 Urine RBC (Auto) 2 05/10/19 17:17 NT-Pro-B Natriuret Pep 45 Qualifiers - * PATIENT BEING DISCHARGED WITH ANY OF THE FOLLOWING DIAGNOSIS: No VTE patient discharged on overlapping Therapy?: No Reason(s) for not prescribing Overlap Therapy:: Not indicated Stroke Pt being discharged on Anti-thrombolytic therapy?: No Reason(s) for not prescribing Anti-thrombolytic therapy:: Not indicated Stroke Pt being discharged on Anti-coagulation therapy?: No Reason(s) for not prescribing Anti-coagulation therapy:: Not indicated Stroke Pt being discharged on Statins?: No Reason(s) for not prescribing Statins therapy:: Not indicated LA Pt being discharged on Aspirin therapy?: No Reason(s) for not prescribing Aspirin therapy:: Not indicated LA Pt being discharged on Statins?: No Reason(s) for not prescribing Statin therapy:: Not indicated LA Pt discharged ACEI/ARBS?: No Reason(s) for not prescribing ACEI/ARBS:: Not indicated Acute Heart Failure - Is this a Heart Failure Patient?: No
[2019-05-11] MEDS: NORMAL SALINE 250 ML with FUROSEMIDE 250 MG IV PRN ×2 (00:14)
[2019-05-11] MEDS: POTASSI CL 20 MEQ/50 ML RIDER 20 MEQ/50 ML RTUPB IV SCH ×2 (00:14→02:14)
[2019-05-11] MEDS: ENOXAPARIN SODIUM INJ 40 MG/0.4 ML DISP.SYRIN SUBCUT SCH (09:04)
[2019-05-11] MEDS: METOPROLOL SUCCINATE 50 MG TAB.SR.24H PO SCH (09:04)
[2019-05-11 09:36] VITALS: BP 147/90
--- NOTE | 2019-05-13 10:04 | XCELERA REPORT ---
[address] [address] Lower Extremity Arterial Evaluation Name: PRINCESS MIGUEL Age: 79 yrs Gender: Male : 1940 Patient Status: Inpatient Patient Location: [address] [place] [address] Study Date: 05/09/2019 04:36 PM Procedure: A color flow and duplex scan of the lower extremity arteries was performed on the left with velocity and waveform anaylsis. Reason For Study: CELLULITIS OF RIGHT LEG Ordering Physician: FELICITY VALDOVINOS Performed By: aMgalis Hart Measurements and Calculations Right Left LANDSCAPE NURSERYMAN PSV 127.5 cm/sec Prox PFA PSV -134.5 cm/sec Prox SFA PSV 133.6 cm/sec Mid SFA PSV 139.7 cm/sec Dist SFA PSV -135.3 cm/sec Prox Pop A PSV 183.0 cm/sec Mid NICOLE PSV 94.3 cm/sec Mid METER MAKER PSV 107.6 cm/sec Gino Pedis PSV -25.0 cm/sec Left Side Arterial Evaluation Normal velocity and triphasic waveforms noted in the Common Femoral artery. Biphasic with normal velocity, moderate spectral broadening in the Femoral to infrageniculate arteries. Somewhat lower velocity in the Dorsalis Pedis. Interpretation Summary Moderate hemodynamically significant lesions in the left lower extremity only, on duplex imaging, at rest. Duplex findings suggest disease effects in the Femoral artery. No focal stenosis or obstruction noted. : FELICITY VALDOVINOS > Thuan Marte
--- NOTE | 2019-05-14 19:02 | XCELERA REPORT ---
[address] [address] Transthoracic Echocardiogram Report Name: PRINCESS MIGUEL Age: 79 yrs Gender: Male : 1940 Patient Status: Inpatient Patient Location: [address] [place] [address] Study Date: 05/10/2019 08:07 PM Height: 65 in Weight: 199 lb BSA: 2.0 m2 Procedure: A two-dimensional transthoracic echocardiogram with color flow and Doppler was performed. Study Quality: Poor. Images were not obtained from all of the standard acoustic windows due to the limited scope of the study. Poor endocardial defenition and poor doppler inferogation. Reason For Study: CHF History: CHF. Ordering Physician: FELICITY VALDOVINOS Performed By: Magalis Hart Interpretation Summary No MVP or MS.Probably no MR.Probably no or AR.Tace TR..Unable to comment on RVSP.No pericardial effusion.Patirnt was discharged prior to obtaining a repeat attempt at ECHO. Images were not obtained from all of the standard acoustic windows due to the limited scope of the study. The left ventricle is grossly normal size. There is normal left ventricular wall thickness. No 'True 2 chamber ' views obtained.Hence cannot comment on the apical and basal inferior ,and the apical and basal anterior trivedi.The mid anterior ,the mid inferior , and the rest of the LV waaaalls contract normally.The LVEF in these limited views is normal at 60%. Doppler measurements suggest impaired left ventricular relaxation, which is associated with grade I/IV or mild diastolic dysfunction Unable to comment on thrombus,ASD,VSD , or {FO. The right ventricle is not well visualized secondary to technical limitations Right atrium not well visualized secondary to technical limitations The left atrial size is normal. No MVP or MS.Probably no MR.Probably no or AR.Tace TR..Unable to comment on RVSP.No pericardial effusion.Patirnt was discharged prior to obtaining a repeat attempt at ECHO. MMode/2D Measurements & Calculations RVDd: 2.3 cm LVIDd: 4.1 cm FS: 31.0 % LA dimension: 3.4 cm IVSd: 0.90 cm LVIDs: 2.8 cm EDV(Teich): 73.4 ml LVPWd: 1.1 cm ESV(Teich): 30.0 ml EF(Teich): 59.1 % Doppler Measurements & Calculations MV E max malvin: MV P1/2t max malvin: Ao V2 max: AI max malvin: 54.8 cm/sec 65.9 cm/sec 114.7 cm/sec 178.5 cm/sec MV A max malvin: MV P1/2t: 45.3 msec Ao max P.3 mmHg AI max P.0 cm/sec MVA(P1/2t): 4.9 cm2 12.8 mmHg MV E/A: 0.71 MV dec slope: AI dec slope: 81.6 cm/sec2 426.2 cm/sec2 AI P1/2t: MV dec time: 0.17 sec 640.7 msec LV V1 max PG: PA V2 max: AV P1/2t-pr_phl: MV P1/2t-pr_phl: 2.2 mmHg 80.5 cm/sec 640.0 msec 45.3 msec LV V1 max: PA max P.6 mmHg 74.0 cm/sec Left Ventricle The left ventricle is grossly normal size. There is normal left ventricular wall thickness. No 'True 2 chamber ' views obtained.Hence cannot comment on the apical and basal inferior ,and the apical and basal anterior trivedi.The mid anterior ,the mid inferior , and the rest of the LV waaaalls contract normally.The LVEF in these limited views is normal at 60%. Doppler measurements suggest impaired left ventricular relaxation, which is associated with grade I/IV or mild diastolic dysfunction. Unable to comment on thrombus,ASD,VSD , or {FO. Right Ventricle The right ventricle is not well visualized secondary to technical limitations. Atria Right atrium not well visualized secondary to technical limitations. The left atrial size is normal. : FELICITY VALDOVINOS > Sophy Katz
== END 2019-05-11 09:50 | disposition home health service (06) ==
LOC: 4S 11:37
PROVIDERS: ADMIT Internal Medicine; ATTEND Internal Medicine
DX: I87.321 Chronic venous hypertension (idiopathic) with inflammation of right lower extremity (principal); I89.0 Lymphedema, not elsewhere classified; I10 Essential (primary) hypertension; M15.9 Polyosteoarthritis, unspecified; Z95.0 Presence of cardiac pacemaker; Z90.49 Acquired absence of other specified parts of digestive tract; Z96.651 Presence of right artificial knee joint; Z96.641 Presence of right artificial hip joint; Z79.899 Other long term (current) drug therapy
CPT/HCPCS: 36415 ×2; 85027; 80076; 80048; 80053; 81001; 83880; 93971 ×2; 93926 ×2; 93306; G0378 ×3; G0379; A9270 ×3; J1940 ×3; J1650 ×2; J3480; J7050 ×3

== ENCOUNTER → 2020-02-13 | Outpatient (CLI) | payer MEDICAID, MEDICARE ==
--- NOTE | 2020-02-13 13:40 | RADIOLOGY REPORT (SQ) ---
EXAM DESCRIPTION: CT FACIAL AREA WITHOUT IMAGES COMPLETED DATE/TIME: 02/13/2020 12:33 pm REASON FOR STUDY: J32.9 CHRONIC SINUSITIS, UNSPECIFIED J32.9 CHRONIC SINUSITIS, UNSPECIFIED COMPARISON: None. TECHNIQUE: Noncontrasted images through the facial bones and orbits windowed for bone and soft tissu e. Additional coronal and sagittal reconstructed images reviewed. All images stored on PACS. All CT scanners at this facility use dose modulation, iterative reconstruction, and/or weight based d osing when appropriate to reduce radiation dose to as low as reasonably achievable (ALARA). [facility]: Dose Right [facility]: CareDose [facility]: Dose Right [facility]: Teradose 4D [facility]: [employer] RADIATION DOSE: mGy. LIMITATIONS: None. FINDINGS: FACIAL BONES: No fracture or bone lesion. ORBITS: Intact. No fracture. Symmetric intact globes and retroorbital soft tissues. PARANASAL SINUSES: Clear. No significant mucosal thickening, mass or fluid. No nasal polyps. Maxill kelly sinus outlets are patent. SOFT TISSUES: No mass or edema. INFERIOR BRAIN: Limited view. No acute findings. OTHER: No other significant finding. IMPRESSION: NO ACUTE FINDINGS. TECHNICAL DOCUMENTATION: JOB ID: [id number] Quality ID # [id number]: Final reports with documentation of one or more dose reduction techniques (e.g., Au tomated exposure control, adjustment of the mA and/or kV according to patient size, use of iterative reconstruction technique) 2010 [employer]- All Rights Reserved Reading location - IP/workstation name: [email or web address]
== END ==
LOC: RAD 10:43
PROVIDERS: ATTEND Internal Medicine
DX: J32.9 Chronic sinusitis, unspecified (principal)
CPT/HCPCS: 70486

== ENCOUNTER → 2020-03-12 | Outpatient (CLI) | payer MEDICARE ==
--- NOTE | 2020-03-12 10:30 | RADIOLOGY REPORT (SQ) ---
EXAM DESCRIPTION: CT ABD/PELVIS NO ORAL OR IV IMAGES COMPLETED DATE/TIME: 03/12/2020 9:30 am REASON FOR STUDY: (R10.30)LOWER ABDOMINAL PAIN, UNSPECIFIED R10.30 LOWER ABDOMINAL PAIN, UNSPECIFIE D COMPARISON: 02/28/2018 TECHNIQUE: CT scan of the abdomen and pelvis performed without intravenous or oral contrast. Images reviewed with lung, soft tissue, and bone windows. Reconstructed coronal and sagittal MPR images revi ewed. All images stored on PACS. All CT scanners at this facility use dose modulation, iterative reconstruction, and/or weight based d osing when appropriate to reduce radiation dose to as low as reasonably achievable (ALARA). [facility]: Dose Right [facility]: CareDose [facility]: Dose Right [facility]: Teradose 4D [facility]: [employer] RADIATION DOSE: CT Rad equipment meets quality standard of care and radiation dose reduction techniq ues were employed. CTDIvol: 15.0 mGy. DLP: 710 mGy-cm.mGy. LIMITATIONS: None. FINDINGS: LOWER CHEST: No significant findings. No nodules or infiltrates. NON-CONTRASTED LIVER, SPLEEN, ADRENALS: Evaluation limited by lack of IV contrast. No identified sign ificant masses. PANCREAS: No masses. No peripancreatic inflammatory changes. GALLBLADDER: No identified stones by CT criteria. No inflammatory changes to suggest cholecystitis. RIGHT KIDNEY AND URETER: Stable simple cysts. No suspicious masses. Assessment limited by lack of IV contrast. No significant calcifications. No hydronephrosis or hydroureter. LEFT KIDNEY AND URETER: Stable simple cysts. No suspicious masses. Assessment limited by lack of IV contrast. No significant calcifications. No hydronephrosis or hydroureter. AORTA AND RETROPERITONEUM: No aneurysm. No retroperitoneal masses or adenopathy. BOWEL AND PERITONEAL CAVITY: No obvious masses or inflammatory changes. No free fluid. APPENDIX: Surgically absent. PELVIS, BLADDER, AND ABDOMINAL WALL:No abnormal masses. No free fluid. Bladder normal. BONES: Status post right total hip arthroplasty without evidence of hardware complication. No acute findings. OTHER: No other significant finding. IMPRESSION: Stable CT appearance of the abdomen and pelvis. No evidence of obstructive uropathy or acute intra-abdominal infectious/inflammatory process. COMMENT: Quality ID # 436: Final reports with documentation of one or more dose reduction techniques (e.g., Automated exposure control, adjustment of the mA and/or kV according to patient size, use of iterative reconstruction technique) TECHNICAL DOCUMENTATION: JOB ID: [id number] 2010 [employer]- All Rights Reserved Reading location - IP/workstation name: [email or web address]
== END ==
LOC: RAD 09:14
PROVIDERS: ATTEND Internal Medicine
DX: R10.30 Lower abdominal pain, unspecified (principal)
CPT/HCPCS: 74176

== ENCOUNTER → 2020-04-11 | Outpatient (CLI) | payer MEDICARE ==
[2020-04-11 11:43] LABS: HEMATOCRIT 43.5 % (37.9-51.0); HEMOGLOBIN 14.7 g/dL (13.5-17.0); MEAN CORPUSCULAR HEMOGLOBIN 30.5 pg (27.0-33.4); MEAN CORPUSCULAR HGB CONC 33.8 g/dL (32.0-36.0); MEAN CORPUSCULAR VOLUME 90 fl (80-97); RED BLOOD COUNT 4.83 10^6/uL (4.35-5.55); RED CELL DISTRIBUTION WIDTH 14.4 % (11.5-14.0); WHITE BLOOD COUNT 7.2 10^3/uL (4.0-10.5)
[2020-04-11 12:06] LABS: ALBUMIN 4.2 g/dL (3.5-5.0); ALKALINE PHOSPHATASE 73 U/L (38-126); ANION GAP 6 (5-19); ASPARTATE AMINO TRANSFERASE 25 U/L (17-59); BILIRUBIN,TOTAL 0.5 mg/dL (0.2-1.3); BLOOD UREA NITROGEN 16 mg/dL (7-20); CALCIUM 9.3 mg/dL (8.4-10.2); CARBON DIOXIDE 28 mmol/L (22-30); CHLORIDE 103 mmol/L (98-107); GLUCOSE 108 mg/dL (75-110); POTASSIUM 4.2 mmol/L (3.6-5.0); TOTAL PROTEIN 8.1 g/dL (6.3-8.2)
[2020-04-11 12:10] LABS: PLATELET COUNT 223 10^3/uL (150-450)
== END ==
LOC: OD 10:51
PROVIDERS: ATTEND Internal Medicine Gastroenterology
DX: R10.32 Left lower quadrant pain (principal)
CPT/HCPCS: 36415; 80053; 85027

== ENCOUNTER → 2020-05-15 | Outpatient (CLI) | payer MEDICARE | LOC: OD 11:15 | PROVIDERS: ATTEND Otolaryngology | DX: J30.9 Allergic rhinitis, unspecified (principal) | CPT/HCPCS: 36415; 82785; 86003 ==

== ENCOUNTER → 2020-05-21 | Outpatient (CLI) | payer MEDICARE ==
--- NOTE | 2020-05-21 12:13 | RADIOLOGY REPORT (SQ) ---
EXAM DESCRIPTION: KNEE RIGHT 2 VIEWS IMAGES COMPLETED DATE/TIME: 05/21/2020 10:12 am REASON FOR STUDY: PAIN IN RIGHT KNEE (M25.561) M25.561 PAIN IN RIGHT KNEE COMPARISON: None. NUMBER OF VIEWS: Two views. TECHNIQUE: AP, lateral, and oblique radiographic images acquired of the right knee. LIMITATIONS: None. FINDINGS: MINERALIZATION: Normal. BONES: Total knee arthroplasty in good position. There is a small exostosis arising from the distal femur medially. JOINT: No effusion. SOFT TISSUES: No soft tissue swelling. No radio-opaque foreign body. OTHER: No other significant finding. IMPRESSION: NEGATIVE STUDY OF THE RIGHT KNEE. NO RADIOGRAPHIC EVIDENCE OF ACUTE INJURY. TECHNICAL DOCUMENTATION: JOB ID: [id number] 2010 [employer]- All Rights Reserved Reading location - IP/workstation name: [email or web address]
== END ==
LOC: RAD 09:47
PROVIDERS: ATTEND Internal Medicine
DX: M25.561 Pain in right knee (principal)

== ENCOUNTER 2020-06-25 08:23 | Inpatient (IN) | payer MEDICARE ==
[2020-06-20 13:37] LABS: HEMATOCRIT 41.8 % (37.9-51.0); HEMOGLOBIN 14.2 g/dL (13.5-17.0); MEAN CORPUSCULAR HEMOGLOBIN 30.6 pg (27.0-33.4); MEAN CORPUSCULAR HGB CONC 33.9 g/dL (32.0-36.0); MEAN CORPUSCULAR VOLUME 90 fl (80-97); PLATELET COUNT 208 10^3/uL (150-450); RED BLOOD COUNT 4.63 10^6/uL (4.35-5.55); RED CELL DISTRIBUTION WIDTH 14.2 % (11.5-14.0); WHITE BLOOD COUNT 6.6 10^3/uL (4.0-10.5)
[2020-06-20 13:58] LABS: ANION GAP 7 (5-19); BLOOD UREA NITROGEN 11 mg/dL (7-20); CALCIUM 9.1 mg/dL (8.4-10.2); CARBON DIOXIDE 29 mmol/L (22-30); CHLORIDE 105 mmol/L (98-107); GLUCOSE 90 mg/dL (75-110); POTASSIUM 4.2 mmol/L (3.6-5.0)
--- NOTE | 2020-06-20 14:04 | RADIOLOGY REPORT (SQ) ---
EXAM DESCRIPTION: CHEST PA/LATERAL IMAGES COMPLETED DATE/TIME: 06/20/2020 1:48 pm REASON FOR STUDY: PRE-OP COMPARISON: 01/17/2019. EXAM PARAMETERS: NUMBER OF VIEWS: two views TECHNIQUE: Digital Frontal and Lateral radiographic views of the chest acquired. RADIATION DOSE: NA LIMITATIONS: none FINDINGS: LUNGS AND PLEURA: No opacities, masses or pneumothorax. No pleural effusion. MEDIASTINUM AND HILAR STRUCTURES: No masses or contour abnormalities. HEART AND VASCULAR STRUCTURES: Heart normal size. No evidence for failure. BONES: No acute findings. Degenerative changes in the spine with scoliosis. HARDWARE: None in the chest. OTHER: No other significant finding. IMPRESSION: NO ACUTE RADIOGRAPHIC FINDING IN THE CHEST. TECHNICAL DOCUMENTATION: JOB ID: [id number] 2010 [employer]- All Rights Reserved Reading location - IP/workstation name: [email or web address]
--- NOTE | 2020-06-20 22:07 | EKG REPORT ---
SEVERITY:- BORDERLINE ECG - SINUS RHYTHM PROBABLE LEFT ATRIAL ABNORMALITY : Confirmed by: Sophy Katz MD 20-Jun-2020 22:06:48
[~2020-06-25 08:23] MED LIST: ACETAMINOPHEN 1,000 MG/100 ML RTUPB IV PRN; CEFOXITIN SODIUM 2 GM in DEXTROSE 5%-WATER 100 ML IV PRN; DEXAMETHASONE SOD PHOSPHATE INJ 4 MG/1 ML VIAL ONE; FENTANYL CITRATE INJ/PF 100 MCG/2 ML AMPUL ONE; FENTANYL CITRATE INJ/PF 250 MCG/5 ML AMPULE ONE; IBUPROFEN 800 MG in NORMAL SALINE 250 ML IV PRN; LACTATED RINGERS 1000 ML IV PRN; LIDOCAINE 0.5% INJ-PF (5 MG/ML) 50 ML SDV SUBCUT PRN; MIDAZOLAM 2 MG/2 ML INJ ONE; ONDANSETRON HCL INJ/PF 4 MG/2 ML SDV ONE; PROPOFOL INJ 200 MG/20 ML VIAL IV ONE; SUGAMMADEX SODIUM 200 MG/2 ML SDV IV ONE
[2020-06-25] MEDS ORDERED: BUPIVACAINE HCL 0.25 % INJ/PF (2.5 MG/1 ML) 30 ML VIAL ONE (10:16)
[2020-06-25] MEDS ORDERED: ROCURONIUM BROMIDE INJ 50 MG/5 ML VIAL IV ONE (11:46)
[2020-06-25] MEDS ORDERED: SUCCINYLCHOLINE CHLORIDE INJ 200 MG/10 ML VIAL ONE (11:46)
[2020-06-25] MEDS ORDERED: MORPHINE SULFATE 10 MG/ML INJ IV PRN (11:59)
[2020-06-25] MEDS ORDERED: MEPERIDINE HCL/PF INJ 25 MG/1 ML DISP.SYRIN IV PRN (11:59)
[2020-06-25] MEDS ORDERED: FENTANYL CITRATE INJ/PF 100 MCG/2 ML AMPUL IV PRN ×3 (11:59)
[2020-06-25] MEDS ORDERED: ONDANSETRON HCL INJ/PF 4 MG/2 ML SDV IV PRN ×2 (11:59→13:16)
[2020-06-25] MEDS ORDERED: DIPHENHYDRAMINE HCL 50 MG/ML VIAL IV PRN (11:59)
[2020-06-25] MEDS ORDERED: PROMETHAZINE HCL INJ 25 MG/1 ML VIAL IV PRN ×2 (11:59)
[2020-06-25] MEDS ORDERED: MORPHINE SULFATE 10 MG/ML INJ ONE (14:09)
[2020-06-25] MEDS ORDERED: FENTANYL CITRATE INJ/PF 100 MCG/2 ML AMPUL ONE (14:09)
[2020-06-25] MEDS: NORMAL SALINE 1000 ML 1,000 ML IV PRN (16:16)
[2020-06-25] MEDS: ACETAMINOPHEN 1,000 MG/100 ML RTUPB IV SCH ×2 (16:17→21:58)
[2020-06-25] MEDS: MORPHINE SULFATE 10 MG/ML INJ IV PRN ×2 (18:29→23:47)
[2020-06-25] MEDS: CEFOXITIN SODIUM 2 GM in DEXTROSE 5%-WATER 100 ML IV SCH (19:44)
[2020-06-25] MEDS: FAMOTIDINE INJ/PF 20 MG/2 ML SDV IV SCH (21:59)
[2020-06-26] MEDS: CEFOXITIN SODIUM 2 GM in DEXTROSE 5%-WATER 100 ML IV SCH (02:16)
[2020-06-26] MEDS: ACETAMINOPHEN 1,000 MG/100 ML RTUPB IV SCH ×3 (05:30→21:19)
[2020-06-26] MEDS: NORMAL SALINE 1000 ML 1,000 ML IV PRN (05:31)
[2020-06-26 06:00] LABS: ABSOLUTE LYMPHOCYTES (AUTO) 1.1 10^3/uL (0.5-4.7); ABSOLUTE MONOCYTES (AUTO) 1.3 10^3/uL (0.1-1.4); ABSOLUTE NEUT (AUTO) 9.2 10^3/uL (1.7-8.2); BASOPHILS % (AUTO) 0.2 % (0-2); HEMATOCRIT 38.7 % (37.9-51.0); LYMPHOCYTES % (AUTO) 9.4 % (13-45); MEAN CORPUSCULAR HEMOGLOBIN 30.6 pg (27.0-33.4); MEAN CORPUSCULAR HGB CONC 33.6 g/dL (32.0-36.0); MEAN CORPUSCULAR VOLUME 91 fl (80-97); MONOCYTES % (AUTO) 11.1 % (3-13); PLATELET COUNT 212 10^3/uL (150-450); RED BLOOD COUNT 4.25 10^6/uL (4.35-5.55); RED CELL DISTRIBUTION WIDTH 14.2 % (11.5-14.0); SEGMENTED NEUTROPHILS % (AUTO) 79.3 % (42-78); TOTAL CELLS COUNTED % (AUTO) 100 %; WHITE BLOOD COUNT 11.6 10^3/uL (4.0-10.5)
[2020-06-26 06:24] LABS: ANION GAP 9 (5-19); BLOOD UREA NITROGEN 13 mg/dL (7-20); CALCIUM 8.2 mg/dL (8.4-10.2); CARBON DIOXIDE 27 mmol/L (22-30); CHLORIDE 102 mmol/L (98-107); GLUCOSE 122 mg/dL (75-110); POTASSIUM 4.2 mmol/L (3.6-5.0)
[2020-06-26] MEDS: MORPHINE SULFATE 10 MG/ML INJ IV PRN ×2 (09:20→17:54)
[2020-06-26] MEDS: ENOXAPARIN SODIUM INJ 40 MG/0.4 ML DISP.SYRIN SUBCUT SCH (09:21)
[2020-06-26] MEDS: FAMOTIDINE INJ/PF 20 MG/2 ML SDV IV SCH ×2 (09:21→21:01)
--- NOTE | 2020-06-26 13:43 | PDOC PROGRESS REPORT ---
Subjective Progress Note for:: 06/26/20 Reason For Visit: S/P RIGHT HEMICOLECTOMY FOR ADENOMA OF THE COLON Physical Exam Vital Signs: Temp Pulse Resp BP Pulse Ox 99.3 F 90 18 171/73 H 98 06/26/20 11:22 06/26/20 11:22 06/26/20 11:22 06/26/20 11:22 06/26/20 11:22 Intake & Output 06/25/20 06/26/20 06/27/20 06:59 06:59 06:59 Intake Total 2800 240 Output Total 775 Balance 2024 240 Weight 97.5 kg Results Laboratory Results: 06/26/20 04:29 06/26/20 04:29 06/26/20 06/26/20 04:29 04:29 WBC 11.6 H RBC 4.25 L Hgb 13.0 L Hct 38.7 MCV 91 MCH 30.6 MCHC 33.6 RDW 14.2 H Plt Count 212 Seg Neutrophils % 79.3 H Sodium 138.2 Potassium 4.2 Chloride 102 Carbon Dioxide 27 Anion Gap 9 BUN 13 Creatinine 0.88 Est GFR ( Amer) > 60 Glucose 122 H Calcium 8.2 L Impressions: Chest X-Ray 06/20/20 00:00 IMPRESSION: NO ACUTE RADIOGRAPHIC FINDING IN THE CHEST. Assessment & Plan - Diagnosis (1) Adenomatous polyp of cecum Is this a current diagnosis for this admission?: Yes - Time Anticipated Discharge Disposition: Home, Self Care Anticipated Discharge Timeframe: ~5 days - Plan Summary Plan Summary: This is a 80-year-old male with a large, adenomatous polyp of the cecum. Yesterday, he underwent laparoscopic right hemicolectomy. The patient is doing reasonably well today. He is slightly confused, but converses without difficulty. He does report pain. He denies any nausea, vomiting, or flatus at this time. The patient should get out of bed today. If this goes well, plan to discontinue Guerrero tomorrow. Electrolytes within normal limits. Repeat labs tomorrow.
[2020-06-26] MEDS ORDERED: HYDRALAZINE HCL INJ/PF 20 MG/1 ML SDV IV PRN (20:21)
[2020-06-27] MEDS: MORPHINE SULFATE 10 MG/ML INJ IV PRN (03:01)
[2020-06-27] MEDS: NORMAL SALINE 1000 ML 1,000 ML IV PRN ×2 (03:04→13:39)
[2020-06-27] MEDS: ACETAMINOPHEN 1,000 MG/100 ML RTUPB IV SCH ×3 (05:10→21:24)
[2020-06-27 05:16] LABS: ABSOLUTE BASOPHILS # (AUTO) 0.1 10^3/uL (0.0-0.2); ABSOLUTE EOSINOPHILS # (AUTO) 0.1 10^3/uL (0.0-0.6); ABSOLUTE LYMPHOCYTES (AUTO) 1.5 10^3/uL (0.5-4.7); ABSOLUTE MONOCYTES (AUTO) 1.5 10^3/uL (0.1-1.4); ABSOLUTE NEUT (AUTO) 6.9 10^3/uL (1.7-8.2); BASOPHILS % (AUTO) 0.6 % (0-2); EOSINOPHILS % (AUTO) 0.9 % (0-6); HEMATOCRIT 35.3 % (37.9-51.0); HEMOGLOBIN 11.9 g/dL (13.5-17.0); MEAN CORPUSCULAR HEMOGLOBIN 30.7 pg (27.0-33.4); MEAN CORPUSCULAR HGB CONC 33.7 g/dL (32.0-36.0); MEAN CORPUSCULAR VOLUME 91 fl (80-97); MONOCYTES % (AUTO) 14.6 % (3-13); PLATELET COUNT 204 10^3/uL (150-450); RED BLOOD COUNT 3.87 10^6/uL (4.35-5.55); RED CELL DISTRIBUTION WIDTH 14.2 % (11.5-14.0); SEGMENTED NEUTROPHILS % (AUTO) 68.9 % (42-78); TOTAL CELLS COUNTED % (AUTO) 100 %
[2020-06-27 05:33] LABS: ANION GAP 7 (5-19); BLOOD UREA NITROGEN 7 mg/dL (7-20); CALCIUM 8.5 mg/dL (8.4-10.2); CARBON DIOXIDE 29 mmol/L (22-30); CHLORIDE 104 mmol/L (98-107); GLUCOSE 114 mg/dL (75-110)
--- NOTE | 2020-06-27 06:58 | PDOC PROGRESS REPORT ---
Subjective Progress Note for:: 06/27/20 Reason For Visit: S/P RIGHT HEMICOLECTOMY FOR ADENOMA OF THE COLON Physical Exam Vital Signs: Temp Pulse Resp BP Pulse Ox 99.9 F 92 17 159/69 H 99 06/26/20 23:43 06/27/20 04:17 06/26/20 23:43 06/27/20 04:17 06/27/20 05:59 Intake & Output 06/25/20 06/26/20 06/27/20 06:59 06:59 06:59 Intake Total 2800 3718 Output Total 775 3025 Balance 2024 69 Weight 97.5 kg 97.5 kg Results Laboratory Results: 06/27/20 04:05 06/27/20 04:05 06/27/20 06/27/20 04:05 04:05 WBC 10.0 RBC 3.87 L Hgb 11.9 L Hct 35.3 L MCV 91 MCH 30.7 MCHC 33.7 RDW 14.2 H Plt Count 204 Seg Neutrophils % 68.9 Sodium 139.5 Potassium 4.0 Chloride 104 Carbon Dioxide 29 Anion Gap 7 BUN 7 Creatinine 0.91 Est GFR ( Amer) > 60 Glucose 114 H Calcium 8.5 Impressions: Chest X-Ray 06/20/20 00:00 IMPRESSION: NO ACUTE RADIOGRAPHIC FINDING IN THE CHEST. Assessment & Plan - Diagnosis (1) Adenomatous polyp of cecum Is this a current diagnosis for this admission?: Yes - Time Anticipated Discharge Disposition: unknown Anticipated Discharge Timeframe: 4-5 days - Plan Summary Plan Summary: This is a 80-year-old male with a large, adenomatous polyp of the cecum. He is postop day #2 from a laparoscopic right hemicolectomy. The patient is awake and alert today. He does report abdominal pain. His cough is very weak. He has rhonchi and coarse breath sounds. He does not have an incentive spirometer in his room. He denies any nausea, vomiting, or flatus at this time. It is essential that the patient get out of bed today. His mobilization and respiratory effort are poor. Continue Guerrero for 1 more day. Electrolytes within normal limits. Repeat labs tomorrow. Poor respiratory effort, and rhonchi on physical exam. Order chest PT and nebulizer treatments every 6 hours. Consult physical therapy to aid in mobilization. Awaiting bowel function.
[2020-06-27] MEDS: ALBUTEROL SULFATE 0.042% NEB (1.25 MG/3 ML) AMPUL NEB SCH ×3 (08:39→20:21)
[2020-06-27] MEDS ORDERED: (PENDING PHARMACY ID) (Metoprolol Succinate [Toprol Xl 100 Mg Tablet] 200 MG) PO SCH (10:00)
[2020-06-27] MEDS: ENOXAPARIN SODIUM INJ 40 MG/0.4 ML DISP.SYRIN SUBCUT SCH (10:39)
[2020-06-27] MEDS: FAMOTIDINE INJ/PF 20 MG/2 ML SDV IV SCH ×2 (10:40→21:24)
[2020-06-27] MEDS: METOPROLOL SUCCINATE 50 MG TAB.SR.24H PO SCH (10:40)
[2020-06-27] MEDS ORDERED: ALBUTEROL SULFATE 0.042% NEB (1.25 MG/3 ML) AMPUL NEB ONE (14:40)
[2020-06-28] MEDS: ALBUTEROL SULFATE 0.042% NEB (1.25 MG/3 ML) AMPUL NEB SCH ×4 (02:33→19:31)
[2020-06-28 05:15] LABS: ABSOLUTE BASOPHILS # (AUTO) 0.1 10^3/uL (0.0-0.2); ABSOLUTE EOSINOPHILS # (AUTO) 0.2 10^3/uL (0.0-0.6); ABSOLUTE LYMPHOCYTES (AUTO) 1.4 10^3/uL (0.5-4.7); ABSOLUTE MONOCYTES (AUTO) 1.3 10^3/uL (0.1-1.4); ABSOLUTE NEUT (AUTO) 7.8 10^3/uL (1.7-8.2); BASOPHILS % (AUTO) 0.6 % (0-2); EOSINOPHILS % (AUTO) 1.8 % (0-6); HEMATOCRIT 37.7 % (37.9-51.0); HEMOGLOBIN 12.7 g/dL (13.5-17.0); LYMPHOCYTES % (AUTO) 12.9 % (13-45); MEAN CORPUSCULAR HEMOGLOBIN 30.5 pg (27.0-33.4); MEAN CORPUSCULAR HGB CONC 33.6 g/dL (32.0-36.0); MEAN CORPUSCULAR VOLUME 91 fl (80-97); MONOCYTES % (AUTO) 12.3 % (3-13); PLATELET COUNT 230 10^3/uL (150-450); RED BLOOD COUNT 4.15 10^6/uL (4.35-5.55); RED CELL DISTRIBUTION WIDTH 13.8 % (11.5-14.0); SEGMENTED NEUTROPHILS % (AUTO) 72.4 % (42-78); TOTAL CELLS COUNTED % (AUTO) 100 %; WHITE BLOOD COUNT 10.7 10^3/uL (4.0-10.5)
[2020-06-28 05:30] LABS: ANION GAP 8 (5-19); BLOOD UREA NITROGEN 10 mg/dL (7-20); CALCIUM 8.8 mg/dL (8.4-10.2); CARBON DIOXIDE 28 mmol/L (22-30); CHLORIDE 103 mmol/L (98-107); GLUCOSE 110 mg/dL (75-110)
[2020-06-28] MEDS: ACETAMINOPHEN 1,000 MG/100 ML RTUPB IV SCH (05:40)
[2020-06-28] MEDS: MORPHINE SULFATE 10 MG/ML INJ IV PRN (06:41)
[2020-06-28] MEDS ORDERED: HYDROCODONE/ACETAMINOPHEN 10-325 MG TABLET PO PRN (09:30)
[2020-06-28] MEDS: METOPROLOL SUCCINATE 50 MG TAB.SR.24H PO SCH (09:32)
[2020-06-28] MEDS: ENOXAPARIN SODIUM INJ 40 MG/0.4 ML DISP.SYRIN SUBCUT SCH (09:33)
--- NOTE | 2020-06-28 09:34 | PDOC PROGRESS REPORT ---
Subjective Progress Note for:: 06/28/20 Reason For Visit: S/P RIGHT HEMICOLECTOMY FOR ADENOMA OF THE COLON Physical Exam Vital Signs: Temp Pulse Resp BP Pulse Ox 99.0 F 67 16 134/87 H 91 L 06/27/20 23:36 06/28/20 02:33 06/28/20 02:33 06/27/20 23:36 06/28/20 02:33 Intake & Output 06/27/20 06/28/20 06/29/20 06:59 06:59 06:59 Intake Total 3718 1987 Output Total 3025 1999 Balance 693 -12 Weight 97.5 kg 96.8 kg Results Laboratory Results: 06/28/20 04:04 06/28/20 04:04 06/28/20 06/28/20 04:04 04:04 WBC 10.7 H RBC 4.15 L Hgb 12.7 L Hct 37.7 L MCV 91 MCH 30.5 MCHC 33.6 RDW 13.8 Plt Count 230 Seg Neutrophils % 72.4 Sodium 138.8 Potassium 4.0 Chloride 103 Carbon Dioxide 28 Anion Gap 8 BUN 10 Creatinine 0.86 Est GFR ( Amer) > 60 Glucose 110 Calcium 8.8 Impressions: Chest X-Ray 06/20/20 00:00 IMPRESSION: NO ACUTE RADIOGRAPHIC FINDING IN THE CHEST. Assessment & Plan - Diagnosis (1) Adenomatous polyp of cecum Is this a current diagnosis for this admission?: Yes - Time Anticipated Discharge Disposition: Home, Self Care Anticipated Discharge Timeframe: within 48 hours - Plan Summary Plan Summary: This is a 80-year-old male with a large, adenomatous polyp of the cecum. He is postop day #3 from a laparoscopic right hemicolectomy. The patient is awake and alert today. He does report abdominal pain. His respiratory effort is much improved. He reports passing flatus and having a BM last night. Discontinue Guerrero. Electrolytes within normal limits. Repeat labs tomorrow. Cont chest PT and nebulizer treatments every 6 hours. Cont physical therapy. Advance diet. Start oral pain meds.
[2020-06-28] MEDS: FAMOTIDINE INJ/PF 20 MG/2 ML SDV IV SCH ×2 (10:35→22:20)
[2020-06-28] MEDS: IBUPROFEN 800 MG TABLET PO SCH ×2 (12:00→17:51)
[2020-06-29] MEDS: ALBUTEROL SULFATE 0.042% NEB (1.25 MG/3 ML) AMPUL NEB SCH ×4 (01:55→19:33)
[2020-06-29 05:55] LABS: ABSOLUTE BASOPHILS # (AUTO) 0.1 10^3/uL (0.0-0.2); ABSOLUTE EOSINOPHILS # (AUTO) 0.3 10^3/uL (0.0-0.6); ABSOLUTE MONOCYTES (AUTO) 1.5 10^3/uL (0.1-1.4); ABSOLUTE NEUT (AUTO) 6.8 10^3/uL (1.7-8.2); BASOPHILS % (AUTO) 0.5 % (0-2); EOSINOPHILS % (AUTO) 3.1 % (0-6); HEMATOCRIT 35.1 % (37.9-51.0); HEMOGLOBIN 12.1 g/dL (13.5-17.0); LYMPHOCYTES % (AUTO) 18.6 % (13-45); MEAN CORPUSCULAR HEMOGLOBIN 30.8 pg (27.0-33.4); MEAN CORPUSCULAR HGB CONC 34.4 g/dL (32.0-36.0); MEAN CORPUSCULAR VOLUME 89 fl (80-97); MONOCYTES % (AUTO) 14.2 % (3-13); PLATELET COUNT 233 10^3/uL (150-450); RED BLOOD COUNT 3.93 10^6/uL (4.35-5.55); RED CELL DISTRIBUTION WIDTH 13.6 % (11.5-14.0); SEGMENTED NEUTROPHILS % (AUTO) 63.6 % (42-78); TOTAL CELLS COUNTED % (AUTO) 100 %; WHITE BLOOD COUNT 10.7 10^3/uL (4.0-10.5)
[2020-06-29 06:17] LABS: ANION GAP 6 (5-19); BLOOD UREA NITROGEN 13 mg/dL (7-20); CALCIUM 8.4 mg/dL (8.4-10.2); CARBON DIOXIDE 27 mmol/L (22-30); CHLORIDE 104 mmol/L (98-107); GLUCOSE 116 mg/dL (75-110); POTASSIUM 3.5 mmol/L (3.6-5.0)
[2020-06-29] MEDS: IBUPROFEN 800 MG TABLET PO SCH ×3 (07:46→17:17)
[2020-06-29] MEDS: ENOXAPARIN SODIUM INJ 40 MG/0.4 ML DISP.SYRIN SUBCUT SCH (09:56)
[2020-06-29] MEDS: METOPROLOL SUCCINATE 50 MG TAB.SR.24H PO SCH (09:56)
[2020-06-29] MEDS: FAMOTIDINE INJ/PF 20 MG/2 ML SDV IV SCH ×2 (10:00→21:03)
[2020-06-29] MEDS ORDERED: POTASSIUM CHLORIDE 10 MEQ TABLET.ER PO ONE (10:06)
--- NOTE | 2020-06-29 10:11 | PDOC PROGRESS REPORT ---
Subjective Progress Note for:: 06/29/20 Reason For Visit: S/P RIGHT HEMICOLECTOMY FOR ADENOMA OF THE COLON Physical Exam Vital Signs: Temp Pulse Resp BP Pulse Ox 99.0 F 65 18 160/53 H 97 06/29/20 08:21 06/29/20 08:25 06/29/20 08:25 06/29/20 07:51 06/29/20 08:25 Intake & Output 06/28/20 06/29/20 06/30/20 06:59 06:59 06:59 Intake Total 1987 860 Output Total 1999 200 Balance -12 660 Weight 96.8 kg 94.4 kg Results Laboratory Results: 06/29/20 05:09 06/29/20 05:09 06/29/20 06/29/20 05:09 05:09 WBC 10.7 H RBC 3.93 L Hgb 12.1 L Hct 35.1 L MCV 89 MCH 30.8 MCHC 34.4 RDW 13.6 Plt Count 233 Seg Neutrophils % 63.6 Sodium 137.3 Potassium 3.5 L Chloride 104 Carbon Dioxide 27 Anion Gap 6 BUN 13 Creatinine 0.84 Est GFR ( Amer) > 60 Glucose 116 H Calcium 8.4 Impressions: Chest X-Ray 06/20/20 00:00 IMPRESSION: NO ACUTE RADIOGRAPHIC FINDING IN THE CHEST. Assessment & Plan - Diagnosis (1) Adenomatous polyp of cecum Is this a current diagnosis for this admission?: Yes - Time Anticipated Discharge Disposition: [facility] Facility Anticipated Discharge Timeframe: when bed available - Plan Summary Plan Summary: This is a 80-year-old male with a large, adenomatous polyp of the cecum. He is postop day #4 from a laparoscopic right hemicolectomy. The patient is awake and alert today. His respiratory effort is much improved. He reports passing flatus and having BM's. He is tolerating a regular diet. Pt reports weakness an d inability to walk. He is concerned aout going home alone. Cont chest PT and nebulizer treatments every 6 hours. Cont physical therapy. Cont oral pain meds. Hypokalemia --> replace today Pt with concerns for going home. Consult social work for SNF vs rehab placement.
[2020-06-30] MEDS: ALBUTEROL SULFATE 0.042% NEB (1.25 MG/3 ML) AMPUL NEB SCH ×4 (02:06→20:17)
[2020-06-30] MEDS: ENOXAPARIN SODIUM INJ 40 MG/0.4 ML DISP.SYRIN SUBCUT SCH (09:27)
[2020-06-30] MEDS: IBUPROFEN 800 MG TABLET PO SCH ×3 (09:27→16:50)
[2020-06-30] MEDS: FAMOTIDINE INJ/PF 20 MG/2 ML SDV IV SCH ×3 (09:27→21:04)
[2020-06-30] MEDS: METOPROLOL SUCCINATE 50 MG TAB.SR.24H PO SCH (09:27)
--- NOTE | 2020-06-30 14:19 | PDOC PROGRESS REPORT ---
Subjective Progress Note for:: 06/30/20 Reason For Visit: S/P RIGHT HEMICOLECTOMY FOR ADENOMA OF THE COLON Physical Exam Vital Signs: Temp Pulse Resp BP Pulse Ox 98.9 F 58 L 16 139/59 H 95 06/30/20 12:22 06/30/20 12:22 06/30/20 12:22 06/30/20 12:22 06/30/20 12:22 Intake & Output 06/29/20 06/30/20 07/01/20 06:59 06:59 06:59 Intake Total 860 340 354 Output Total 200 920 100 Balance 660 -580 254 Weight 94.4 kg 93.4 kg Results Laboratory Results: 06/29/20 05:09 06/29/20 05:09 Impressions: Chest X-Ray 06/20/20 00:00 IMPRESSION: NO ACUTE RADIOGRAPHIC FINDING IN THE CHEST. Assessment & Plan - Diagnosis (1) Adenomatous polyp of cecum Is this a current diagnosis for this admission?: Yes - Time Anticipated Discharge Disposition: [facility] Facility Anticipated Discharge Timeframe: within 48 hours - Plan Summary Plan Summary: This is a 80-year-old male with a large, adenomatous polyp of the cecum. He is postop day #5 from a laparoscopic right hemicolectomy. The patient is awake and alert today. His respiratory effort is much improved. He reports passing flatus and having BM's. He is tolerating a regular diet. Pt reports continued difficulty with walking. Cont chest PT and nebulizer treatments every 6 hours. Cont physical therapy. Cont oral pain meds. Pt with concerns for going home. Awaiting SNF vs rehab placement.
[2020-07-01] MEDS: ALBUTEROL SULFATE 0.042% NEB (1.25 MG/3 ML) AMPUL NEB SCH ×4 (02:33→20:12)
[2020-07-01] MEDS: IBUPROFEN 800 MG TABLET PO SCH ×2 (07:45→12:07)
[2020-07-01] MEDS: METOPROLOL SUCCINATE 50 MG TAB.SR.24H PO SCH (10:02)
[2020-07-01] MEDS: ENOXAPARIN SODIUM INJ 40 MG/0.4 ML DISP.SYRIN SUBCUT SCH (10:03)
[2020-07-01] MEDS: FAMOTIDINE INJ/PF 20 MG/2 ML SDV IV SCH (10:09)
--- NOTE | 2020-07-01 14:17 | PDOC PROGRESS REPORT ---
Subjective Progress Note for:: 07/01/20 Reason For Visit: S/P RIGHT HEMICOLECTOMY FOR ADENOMA OF THE COLON Physical Exam Vital Signs: Temp Pulse Resp BP Pulse Ox 98.3 F 60 20 160/58 H 96 07/01/20 08:56 07/01/20 08:56 07/01/20 08:56 07/01/20 08:56 07/01/20 08:56 Intake & Output 06/30/20 07/01/20 07/02/20 06:59 06:59 06:59 Intake Total 340 594 Output Total 920 175 Balance -580 419 Weight 93.4 kg 94.6 kg Results Laboratory Results: 06/29/20 05:09 06/29/20 05:09 Impressions: Chest X-Ray 06/20/20 00:00 IMPRESSION: NO ACUTE RADIOGRAPHIC FINDING IN THE CHEST. Assessment & Plan - Diagnosis (1) Adenomatous polyp of cecum Is this a current diagnosis for this admission?: Yes - Time Anticipated Discharge Disposition: [facility] Facility Anticipated Discharge Timeframe: within 48 hours - Plan Summary Plan Summary: This is a 80-year-old male with a large, adenomatous polyp of the cecum. He is postop day #6 from a laparoscopic right hemicolectomy. The patient is awake and alert today. His respiratory effort is much improved. He reports passing flatus and having BM's. He is tolerating a regular diet. Pt reports continued difficulty with walking. Cont chest PT and nebulizer treatments every 6 hours. Cont physical therapy. Cont oral pain meds. Pt with concerns for going home. Awaiting SNF bed.
[2020-07-01] MEDS: IBUPROFEN 400 MG TABLET PO SCH (17:31)
[2020-07-01] MEDS: FAMOTIDINE 20 MG TABLET PO SCH (21:55)
[2020-07-02] MEDS: ALBUTEROL SULFATE 0.042% NEB (1.25 MG/3 ML) AMPUL NEB SCH ×3 (02:13→13:39)
[2020-07-02] MEDS: IBUPROFEN 400 MG TABLET PO SCH ×2 (09:24→11:14)
[2020-07-02] MEDS: FAMOTIDINE 20 MG TABLET PO SCH (09:24)
[2020-07-02] MEDS: METOPROLOL SUCCINATE 50 MG TAB.SR.24H PO SCH (09:24)
[2020-07-02] MEDS: ENOXAPARIN SODIUM INJ 40 MG/0.4 ML DISP.SYRIN SUBCUT SCH (09:24)
--- NOTE | 2020-07-02 10:25 | PDOC DISCHARGE SUMMARY ---
General - Admit/Disc Date/PCP Admission Date/Primary Care Provider: 06/25/20 08:23 FELICITY VALDOVINOS MD Discharge Date: 07/02/20 - Discharge Diagnosis Final Diagnosis: Tubular adenoma the right colon, recurrent - Assessment Summary: This is a 80-year-old male with a recurrent tubular adenoma of the right colon. It has been removed via endoscopic methods several times, however it continues to regrow. The patient was then taken to the operating room where laparoscopic right hemicolectomy was successfully performed. Patient was taken to the floor in stable condition. The patient progressed well on the floor. He began having bowel movements and tolerating a diet. The patient has difficulty with ambulation at baseline, and after surgery it was noted that he had a very d ifficult time with ambulating and activities of daily lifting. Social workers were consulted for possible SNF placement. The patient has been accepted for a short stay at a nursing facility to assist with ambulation and activities of daily living. At this time the patient is stable, and fit for discharge. - Additional Information Resuscitation Status: Full Code Discharge Diet: As Tolerated Discharge Activity: Balance Activity w/Rest, No Lifting Over 10 Pounds, No Lifting/Push/Pulling Referrals: FELICITY VALDOVINOS MD [Primary Care Provider] - 07/08/20 3:00 pm () KRYSTAL SPENCE MD [ACTIVE STAFF] - 07/11/20 9:45 am (FOR ANY QUESTIONS OR CANCELATIONS PLEASE CALL [facility] OFFICE.) Prescriptions: Hydrocodone/Acetaminophen [Martin 5-325 mg Tablet] 1 tab PO Q6HP PRN #20 tablet PRN Reason: For Pain Home Medications: Hydrochlorothiazide [Hydrodiuril 12.5 mg Tablet] 12.5 mg PO QAM 05/09/19 Metoprolol Succinate [Toprol XL 100 mg Tablet] 200 mg PO DAILY 05/09/19 Dicyclomine HCl [Bentyl 10 mg Capsule] 10 mg PO TIDP PRN 06/21/20 Finasteride [Proscar] 5 mg PO DAILY 06/21/20 Tamsulosin HCl [Flomax] 0.4 mg PO QPM 06/21/20 Hydrocodone/Acetaminophen [Martin 5-325 mg Tablet] 1 tab PO Q6HP PRN #20 tablet 07/02/20 Additional Information: Discharge to residential facility. Activity: No lifting greater than 10 pounds x 6 weeks. Follow-up with [facility] in 7 to 10 days. Martin 5/325 mg p.o. every 6 hours PRN for pain. Okay to shower. Leave incisions uncovered. 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0) 06/29/20 05:09 RDW 13.6 % (11.5-14.0) 06/29/20 05:09 Plt Count 233 10^3/uL (150-450) 06/29/20 05:09 Lymph % (Auto) 18.6 % (13-45) 06/29/20 05:09 [place] % (Auto) 14.2 % (3-13) H 06/29/20 05:09 Eos % (Auto) 3.1 % (0-6) 06/29/20 05:09 Baso % (Auto) 0.5 % (0-2) 06/29/20 05:09 Absolute Neuts (auto) 6.8 10^3/uL (1.7-8.2) 06/29/20 05:09 Absolute Lymphs (auto) 2.0 10^3/uL (0.5-4.7) 06/29/20 05:09 Absolute Monos (auto) 1.5 10^3/uL (0.1-1.4) H 06/29/20 05:09 Absolute Eos (auto) 0.3 10^3/uL (0.0-0.6) 06/29/20 05:09 Absolute Basos (auto) 0.1 10^3/uL (0.0-0.2) 06/29/20 05:09 Seg Neutrophils % 63.6 % (42-78) 06/29/20 05:09 Sodium 137.3 mmol/L (137-145) 06/29/20 05:09 Potassium 3.5 mmol/L (3.6-5.0) L 06/29/20 05:09 Chloride 104 mmol/L (98-107) 06/29/20 05:09 Carbon Dioxide 27 mmol/L (22-30) 06/29/20 05:09 Anion Gap 6 (5-19) 06/29/20 05:09 BUN 13 mg/dL (7-20) 06/29/20 05:09 Creatinine 0.84 mg/dL (0.52-1.25) 06/29/20 05:09 Est GFR ( Amer) > 60 (>60) 06/29/20 05:09 Est GFR (MDRD) Non-Af > 60 (>60) 06/29/20 05:09 Glucose 116 mg/dL (75-110) H 06/29/20 05:09 Calcium 8.4 mg/dL (8.4-10.2) 06/29/20 05:09 COVID-19 Source See comment 07/01/20 11:30 COVID-19 (GARY) Not Detected (Not Detect) 07/01/20 11:30 Impressions: Chest X-Ray 06/20/20 00:00 IMPRESSION: NO ACUTE RADIOGRAPHIC FINDING IN THE CHEST.
[2020-07-02 12:53] VITALS: BP 148/54
--- NOTE | 2020-07-05 07:32 | Operative Report ---
Nonrecallable Operative Report DATE OF SURGERY: 06/25/20 PREOPERATIVE DIAGNOSIS: Tubulovillous adenoma of the cecum, recurrent POSTOPERATIVE DIAGNOSIS: Same as above OPERATION: Laparoscopic right hemicolectomy SURGEON: KRYSTAL SPENCE 1ST [employer] JOIST: PRINCESS HAMILTON ANESTHESIA: GA TISSUE REMOVED OR ALTERED: Right hemicolectomy COMPLICATIONS: None apparent ESTIMATED BLOOD LOSS: Minimal PROCEDURE: Drains/implants: None. Procedure in detail: After informed consent was obtained, the patient was brought to the operating room and laid in the supine position. The area of the abdomen was prepped and draped in a normal sterile fashion. A supraumbilical incision was created with a 15 blade scalpel. Dissection was carried through the subcutaneous tissue using sharp and blunt dissection. The linea alba fascia was incised sharply, the abdomen was entered sharply. The balloon trocar was inserted, and pneumoperitoneum was achieved. A left lower quadrant 12 mm trocar was placed under direct laparoscopic visualization, as was a 5 mm lower midline trocar and a 5 mm right upper quadrant trocar. The cecum was elevated, and the ileocolic artery was identified. Dissection was carried out at the base of the ileocolic artery. The ileocolic artery was then ligated and divided using the [place] stapler with a white load. Next, a medial collateral vessel. The mesentery was from the retroperitoneum using a mixture of sharp and blunt dissection. This was taken laterally to the white line of [place], superiorly up to the margin of the liver, and inferiorly to the ileo-cecal valve. Next, the small bowel was divided using the [place] stapler. The colon was mobilized medially, by dividing the white line of [place] laterally. Dissection was carried up to the mid transverse colon. Once the colon was adequately freed, the 12 mm suprapubic trocar was removed, and the incision was extended. The skin and fascial incision was extended superiorly, approximately 4 cm. The Nader wound retractor was placed into the wound and tightened. The colon was exteriorized, as well as the terminal ileum. The colon was divided at the mid transverse colon using the [place] stapler. Next, the small bowel was brought into apposition with the transverse colon. A stapled, side to side anastomosis was then created between the terminal ileum and the mid transverse colon. This was done on the antimesenteric side. 2 crotch stitches of 3-0 Vicryl were placed. The resulting defect was closed using the [place] stapling device with blue loads. Once this was completed, the anastomosis was tested, and found to be free of any leakage. The anastomosis was then returned to the abdominal cavity. The Nader wound retractor was closed, and pneumoperitoneum was again achieved. The camera was inserted into the abdomen, and the anastomosis was inspected. It was found to lie in good position, without any kinking or twisting evident. Once this was confirmed, the left lower quadrant trocar was removed. The defect was closed using 0 Vicryl suture in [id number] fashion. Pneumoperitoneum was then relieved. The Nader wound retractor was removed, the 5 mm trochars were removed. The supra umbilical fascia was closed with a #1 PDS suture in simple running fashion. The overlying skin was closed using skin desean., And the procedure was concluded. All sponge, instrument, and needle counts were correct x2. Condition: Stable. Princess Hamilton PA-C was scrubbed and present the entirety of the procedure. She assisted with all portions of the procedure including placement of the trochars, dissection of the colon, removal of the colon, creation of the anastomosis, closure of the fascia, and closure of the skin.
== END 2020-07-02 15:38 | DRG 331 ==
LOC: INOR 08:23 → 4N 15:03
PROVIDERS: ADMIT Surgery; ATTEND Surgery
PROC: 0DTF4ZZ Resection of Right Large Intestine, Percutaneous Endoscopic Approach (ICD-10-PCS; principal; 2020-06-25 10:30)
DX: D12.0 Benign neoplasm of cecum (principal); D12.2 Benign neoplasm of ascending colon; Z85.038 Personal history of other malignant neoplasm of large intestine; I10 Essential (primary) hypertension; G47.30 Sleep apnea, unspecified; Z86.79 Personal history of other diseases of the circulatory system; Z96.641 Presence of right artificial hip joint; Z96.651 Presence of right artificial knee joint; Z79.82 Long term (current) use of aspirin; Z79.899 Other long term (current) drug therapy
CPT/HCPCS: 00840; 36415; 71046; 80048; 84132; 85025; 85027; 87635; 88307; 88309; 93005; 93010; 94668; 94799; C1758; C9803; J0131; J0330; J0694; J1100; J1650; J1741; J2250; J2270; J2405; J2704; J3010; J3490; J7030; J7050; J7060; S0028